=== PATIENT | female | born 1990 | race Caucasian/White ===

== ENCOUNTER → 2017-12-11 | Outpatient (CLI) | payer OTHER | END | disposition home or self-care (01) | LOC: C.PAPS 09:34 | PROVIDERS: ATTEND Physician Assistant | DX: Z12.4 Encounter for screening for malignant neoplasm of cervix (principal) ==

== ENCOUNTER 2021-01-29 22:07 | Inpatient (IN) ==
[2021-01-30] MEDS ORDERED: ACETAMINOPHEN 1000 MG/100 ML IV IV ONE (00:43)
[2021-01-30 00:49] LABS: Hematocrit (blood only) 43.8 % (37-47); Hemoglobin 14.6 g/dL (12.0-16.0); Immature Granulocytes # (auto) 0.02 K/uL (0.00-0.02); Immature Granulocytes % (auto) 0.4 %; Lymphocytes # (auto) 0.36 K/uL (1.2-3.4); Lymphocytes % (auto) 7.8 %; Mean Corpuscular Hgb Conc 33.3 g/dL (32-36); Mean Corpuscular Volume 99.1 fL (80-100); Mean Platelet Volume 10.2 fL (7.4-10.4); Monocytes # (auto) 0.13 K/uL (0.11-0.59); Monocytes % (auto) 2.8 %; Neutrophils # (auto) 4.13 K/uL (1.4-6.5); Platelet Count 212 K/uL (130-400); RDW Coefficient of Variation 17.1 % (11.5-14.5); RDW Standard Deviation 62.6 fL (36.4-46.3); Red Blood Count 4.42 M/uL (4.2-5.4); White Blood Count 4.64 K/uL (4.8-10.8)
[2021-01-30 00:59] LABS: INR 0.9 (0.9-1.1); Partial Thromboplastin Time 26.9 Seconds (21.0-31.0); Prothrombin Time 9.6 Seconds (9.0-12.0)
[2021-01-30 01:05] LABS: Albumin Level 2.9 gm/dl (3.4-5.0); BUN Creatinine Ratio 21.9 (10-20); Calcium 8.5 mg/dl (8.5-10.1); Creatinine Clr Calc Pharmacy 88.2 ml/min; Est GFR (African American) 83.3; Est GFR (Non-African American) 71.9; Magnesium 2.6 mg/dl (1.8-2.4); Potassium 4.2 mmol/L (3.5-5.1)
[2021-01-30] MEDS ORDERED: SODIUM CHLORIDE 0.9% 1000ML 1,000 ML IV ONE ×2 (01:06→02:50)
[2021-01-30] MEDS ORDERED: ACETAMINOPHEN 1,000 MG/100 ML VIAL IV STA (01:06)
[2021-01-30 01:07] LABS: Albumin Globulin Ratio 0.6 (0.9-2); Bilirubin,Total 0.5 mg/dl (0.2-1); Globulin 5.1 gm/dl (2.5-4.0)
[2021-01-30] MEDS ORDERED: dexAMETHasone**PF** 10 MG/ML VIAL IV ONE (01:07)
[2021-01-30] MEDS ORDERED: ALBUTEROL HFA 8 GM INHALER INH ONE (01:07)
[2021-01-30 01:28] LABS: Pregnancy Test, Serum Negative (Negative)
[2021-01-30] MEDS ORDERED: KETOROLAC TROMETHAMINE 15 MG/ML VIAL IV STA (02:50)
--- NOTE | 2021-01-30 02:59 | Emergency Department Note ---
History of Present Illness General Chief complaint: Illness Stated complaint: COVID +, COUGH Time Seen by Provider: 01/29/21 22:20 History of Present Illness Maximum Pain Intensity: 10 This 30-year-old with Down syndrome presents to the ER complaining of worsening Covid symptoms who tested positive on Friday and has been symptomatic since last Friday Location: Generalized Quality: Hard to breathe Severity: Moderate Duration: Past week Timing: Started last Friday Context: Breathing got worse and mother brought the patient in Modifying factors: better with rest; worse with activity Marquez in the household has had Covid. Patient started to desat today. Mother was concerned and brought her in. Family complains of cough, congestion, difficulty breathing body aches and headache. Family denies chest pain, abdominal pain, vomiting, diarrhea. Home Medications Medication Instructions Recorded Confirmed Type allopurinol 100 mg tablet 100 mg PO BID 01/03/21 01/30/21 History atorvastatin 10 mg tablet 10 mg PO DAILY 01/03/21 01/30/21 History esomeprazole magnesium 40 mg 40 mg PO DAILY 01/03/21 01/30/21 History granules delayed release for susp hydrocortisone 2.5 % topical cream 1 applic TOPICAL DAILY #30 g 01/03/21 01/30/21 Rx levothyroxine 175 mcg capsule 175 mcg PO DAILY 01/03/21 01/30/21 History dexamethasone 6 mg PO DAILY 01/30/21 01/30/21 History Allergies Allergy/AdvReac Type Severity Reaction Status Date / Time No Known Allergies Allergy Verified 01/30/21 00:39 Past Med/Surg History Medical History Down syndrome H/O hypercholesterolemia Surgical History S/P tonsillectomy and adenoidectomy Family History Other Diabetes Sarcoidosis Social History Smoking Status: Never smoker Feels Safe at Home: Yes Review of Systems A total of 10 systems reviewed and were otherwise negative Physical Exam Vital Signs Vital Signs - 24 hr 01/29/21 22:16 01/29/21 22:26 01/29/21 22:31 Temperature 36.8 C Temperature Source Temporal Artery Scan Pulse Rate 78 71 73 Pulse Rate from SpO2 Sensor 71 70 Respiratory Rate 24 22 22 Respiratory Effort / Characteristics Short of Breath Respiratory Depth Normal Respiratory Pattern Regular Blood Pressure 96/28 L 137/72 137/73 Blood Pressure Mean 50 93 94 Blood Pressure Position Sitting Pulse Oximetry 87 L 93 94 Oxygen Delivery Method Room Air Nasal Cannula Nasal Cannula Oxygen Flow Rate 4 4 Sepsis Recent Fever Within 48 Hours Yes Sepsis New/Unexplained Change in Mental Status No Sepsis Action Taken by Nursing Physician Notified 01/29/21 22:35 01/30/21 00:00 01/30/21 00:32 Temperature Temperature Source Pulse Rate 71 62 Pulse Rate from SpO2 Sensor 68 Respiratory Rate 29 H 20 Respiratory Effort / Characteristics Non-Labored Spontaneous Respiratory Depth Respiratory Pattern Blood Pressure 130/73 Blood Pressure Mean 92 Blood Pressure Position Pulse Oximetry 95 93 93 Oxygen Delivery Method Nasal Cannula Oxygen Flow Rate 4 Sepsis Recent Fever Within 48 Hours Sepsis New/Unexplained Change in Mental Status Sepsis Action Taken by Nursing 01/30/21 01:01 01/30/21 01:30 01/30/21 02:00 Temperature Temperature Source Pulse Rate 60 59 L 56 L Pulse Rate from SpO2 Sensor Respiratory Rate 26 H 24 26 H Respiratory Effort / Characteristics Respiratory Depth Respiratory Pattern Blood Pressure 123/81 112/80 108/80 Blood Pressure Mean 95 90 89 Blood Pressure Position Pulse Oximetry 92 92 92 Oxygen Delivery Method Oxygen Flow Rate Sepsis Recent Fever Within 48 Hours Sepsis New/Unexplained Change in Mental Status Sepsis Action Taken by Nursing VITALS: Vitals are noted on the nurse's note and reviewed by myself. Vital signs hypoxic on room air in the mid 80s but patient came up nicely on nasal cannula. GENERAL: Pleasant female who appears sick SKIN: The skin was without rashes, erythema, edema, or bruising. There is no tenting of the skin. Capillary reflex less than 2 seconds. HEAD: Normocephalic atraumatic. EARS: External auditory canals clear, tympanic membranes pearly calzada without erythema or effusion bilaterally. EYES: Pupils equal round and reactive to light and accommodation. Conjunctivae without injection, sclerae without icterus. Extraocular movements intact. NOSE: Patent, turbinates without inflammation or discharge. No sinus tenderness. MOUTH: Mucous membranes mildly dry. Pharynx without erythema or exudate. Uvula midline. Airway patent. Tongue does not deviate. NECK: Supple without nuchal rigidity. No lymphadenopathy. No thyromegaly. Cervical spine is nontender. No JVD. HEART: Regular rate and rhythm LUNGS: Mild diffuse inspiratory and end expiratory wheezes ABDOMEN: Positive bowel sounds x 4. Normal tympanic percussion. Soft, nontender, without masses or organomegaly. Caldera sign negative. No guarding or rebound tenderness. No CVA tenderness MUSCULOSKELETAL: No muscle atrophy, erythema, or edema noted. NEURO: Patient was alert and oriented to person place and time. Normal sensation to light and sharp touch. No focal neurological deficits. Course Administered Medications Discontinued Medications Acetaminophen (Acetaminophen 1000 Mg/100 Ml Iv) Confirm Administered Dose 1,000 mg IV .STK-MED ONE Stop: 01/30/21 00:44 Last Admin: 01/30/21 00:46 Dose: 1,000 mg Documented by: [id number] Albuterol (Albuterol Hfa 8 Gm Inhaler) 2 puffs INH NOW ONE Stop: 01/30/21 01:08 Last Admin: 01/30/21 02:07 Dose: 2 puffs Documented by: [id number] Dexamethasone Sodium Phosphate (DexamethasonePf 10 Mg/Ml Vial) 6 mg IV NOW ONE Stop: 01/30/21 01:08 Last Admin: 01/30/21 02:06 Dose: 6 mg Documented by: [id number] Sodium Chloride (Nss 1000ml) 1,000 mls @ 999 mls/hr IV .Q1H1M ONE Stop: 01/30/21 02:06 Last Infusion: 01/30/21 03:32 Dose: 0 mls/hr Documented by: [id number] Admin: 01/30/21 02:04 Dose: 999 mls/hr Documented by: [id number] Acetaminophen (Ofirmev) 1,000 mg in 100 mls @ 400 mls/hr IV NOW STA Stop: 01/30/21 01:20 Last Admin: 01/30/21 01:15 Dose: Not Given Documented by: [id number] Sodium Chloride (Nss 1000ml) 1,000 mls @ 999 mls/hr IV .Q1H1M ONE Stop: 01/30/21 03:50 Last Admin: 01/30/21 03:16 Dose: 999 mls/hr Documented by: [id number] Ketorolac Tromethamine (Ketorolac Tromethamine 15 Mg/Ml Vial) 10 mg IV NOW STA Stop: 01/30/21 02:51 Last Admin: 01/30/21 03:16 Dose: 10 mg Documented by: [id number] Medical Decision Making Medical Records Attestation: I reviewed the patient's medical records. Home Medications Current Medication List: was personally reviewed by me Laboratory Data Attestation: I reviewed the patient's lab results. Result diagrams: 01/30/21 00:30 01/30/21 00:30 Lab Results 01/30/21 01/30/21 01/30/21 Range/Units 00:30 00:30 00:30 WBC 4.64 L (4.8-10.8) K/uL RBC 4.42 (4.2-5.4) M/uL Hgb 14.6 (12.0-16.0) g/dL Hct 43.8 (37-47) % MCV 99.1 (80-100) fL MCH 33.0 (25-34) pg MCHC 33.3 (32-36) g/dL RDW Std Deviation 62.6 H (36.4-46.3) fL RDW Coeff of Sobeida 17.1 H (11.5-14.5) % Plt Count 212 (130-400) K/uL MPV 10.2 (7.4-10.4) fL Immature Gran % (Auto) 0.4 % Neut % (Auto) 89.0 % Lymph % (Auto) 7.8 % [place] % (Auto) 2.8 % Eos % (Auto) 0.0 % Baso % (Auto) 0.0 % Neut # (Auto) 4.13 (1.4-6.5) K/uL Lymph # (Auto) 0.36 L (1.2-3.4) K/uL [place] # (Auto) 0.13 (0.11-0.59) K/uL Eos # (Auto) 0.00 (0-0.5) K/uL Baso # (Auto) 0.00 (0-0.2) K/uL Immature Gran # (Auto) 0.02 (0.00-0.02) K/uL PT 9.6 (9.0-12.0) Seconds INR 0.9 (0.9-1.1) APTT 26.9 (21.0-31.0) Seconds PTT Ratio 1.0 Sodium 140 (136-145) mmol/L Potassium 4.2 (3.5-5.1) mmol/L Chloride 106 (98-107) mmol/L Carbon Dioxide 28 (21-32) mmol/L Anion Gap 6.0 (3-11) BUN 23 H (7-18) mg/dl Creatinine 1.03 (0.6-1.2) mg/dl Est Cr Clr Drug Dosing 88.2 ml/min Est GFR ( Amer) 83.3 Est GFR (Non-Af Amer) 71.9 BUN/Creatinine Ratio 21.9 H (10-20) Glucose 144 H (70-99) mg/dl Lactate (0.4-2.0) mmol/L Calcium 8.5 (8.5-10.1) mg/dl Magnesium 2.6 H (1.8-2.4) mg/dl Total Bilirubin 0.5 (0.2-1) mg/dl AST 60 H (15-37) U/L ALT 87 H (12-78) U/L Alkaline Phosphatase 181 H (45-117) U/L Total Protein 8.0 (6.4-8.2) gm/dl Albumin 2.9 L (3.4-5.0) gm/dl Globulin 5.1 H (2.5-4.0) gm/dl Albumin/Globulin Ratio 0.6 L (0.9-2) HCG, Qual (Negative) COVID-19 Eval Order SARS-CoV-2 (PCR) (Negative) Influenza Type A (PCR) (Neg) Influenza Type B (PCR) (Neg) RSV (RT-PCR) (Neg) 01/30/21 01/30/21 01/30/21 Range/Units 00:30 00:30 02:03 WBC (4.8-10.8) K/uL RBC (4.2-5.4) M/uL Hgb (12.0-16.0) g/dL Hct (37-47) % MCV (80-100) fL MCH (25-34) pg MCHC (32-36) g/dL RDW Std Deviation (36.4-46.3) fL RDW Coeff of Sobeida (11.5-14.5) % Plt Count (130-400) K/uL MPV (7.4-10.4) fL Immature Gran % (Auto) % Neut % (Auto) % Lymph % (Auto) % [place] % (Auto) % Eos % (Auto) % Baso % (Auto) % Neut # (Auto) (1.4-6.5) K/uL Lymph # (Auto) (1.2-3.4) K/uL [place] # (Auto) (0.11-0.59) K/uL Eos # (Auto) (0-0.5) K/uL Baso # (Auto) (0-0.2) K/uL Immature Gran # (Auto) (0.00-0.02) K/uL PT (9.0-12.0) Seconds INR (0.9-1.1) APTT (21.0-31.0) Seconds PTT Ratio Sodium (136-145) mmol/L Potassium (3.5-5.1) mmol/L Chloride (98-107) mmol/L Carbon Dioxide (21-32) mmol/L Anion Gap (3-11) BUN (7-18) mg/dl Creatinine (0.6-1.2) mg/dl Est Cr Clr Drug Dosing ml/min Est GFR ( Amer) Est GFR (Non-Af Amer) BUN/Creatinine Ratio (10-20) Glucose (70-99) mg/dl Lactate 2.0 (0.4-2.0) mmol/L Calcium (8.5-10.1) mg/dl Magnesium (1.8-2.4) mg/dl Total Bilirubin (0.2-1) mg/dl AST (15-37) U/L ALT (12-78) U/L Alkaline Phosphatase (45-117) U/L Total Protein (6.4-8.2) gm/dl Albumin (3.4-5.0) gm/dl Globulin (2.5-4.0) gm/dl Albumin/Globulin Ratio (0.9-2) HCG, Qual Negative (Negative) COVID-19 Eval Order [facility]FluRsv at [facility] SARS-CoV-2 (PCR) (Negative) Influenza Type A (PCR) (Neg) Influenza Type B (PCR) (Neg) RSV (RT-PCR) (Neg) 01/30/21 Range/Units 02:03 WBC (4.8-10.8) K/uL RBC (4.2-5.4) M/uL Hgb (12.0-16.0) g/dL Hct (37-47) % MCV (80-100) fL MCH (25-34) pg MCHC (32-36) g/dL RDW Std Deviation (36.4-46.3) fL RDW Coeff of Sobeida (11.5-14.5) % Plt Count (130-400) K/uL MPV (7.4-10.4) fL Immature Gran % (Auto) % Neut % (Auto) % Lymph % (Auto) % [place] % (Auto) % Eos % (Auto) % Baso % (Auto) % Neut # (Auto) (1.4-6.5) K/uL Lymph # (Auto) (1.2-3.4) K/uL [place] # (Auto) (0.11-0.59) K/uL Eos # (Auto) (0-0.5) K/uL Baso # (Auto) (0-0.2) K/uL Immature Gran # (Auto) (0.00-0.02) K/uL PT (9.0-12.0) Seconds INR (0.9-1.1) APTT (21.0-31.0) Seconds PTT Ratio Sodium (136-145) mmol/L Potassium (3.5-5.1) mmol/L Chloride (98-107) mmol/L Carbon Dioxide (21-32) mmol/L Anion Gap (3-11) BUN (7-18) mg/dl Creatinine (0.6-1.2) mg/dl Est Cr Clr Drug Dosing ml/min Est GFR ( Amer) Est GFR (Non-Af Amer) BUN/Creatinine Ratio (10-20) Glucose (70-99) mg/dl Lactate (0.4-2.0) mmol/L Calcium (8.5-10.1) mg/dl Magnesium (1.8-2.4) mg/dl Total Bilirubin (0.2-1) mg/dl AST (15-37) U/L ALT (12-78) U/L Alkaline Phosphatase (45-117) U/L Total Protein (6.4-8.2) gm/dl Albumin (3.4-5.0) gm/dl Globulin (2.5-4.0) gm/dl Albumin/Globulin Ratio (0.9-2) HCG, Qual (Negative) COVID-19 Eval Order SARS-CoV-2 (PCR) POSITIVE A* (Negative) Influenza Type A (PCR) Negative (Neg) Influenza Type B (PCR) Negative (Neg) RSV (RT-PCR) Negative (Neg) Imaging Data Attestation: I personally reviewed and interpreted this imaging study as follows: MDM Narrative Prior records/ancillary studies reviewed. Triage Nursing notes reviewed. Additional history obtained from family. The patient's history was concerning for fever. Differential diagnosis: Etiologies such as viral syndrome, otitis, pharyngitis, pneumonia, influenza, meningitis, urinary tract infection, sepsis, bacteremia, as well as others were entertained. Physical examination: As above ER treatment provided: An order was placed for continuous cardiac monitoring. The monitor shows a rate of 50-100 with a sinus rhythm. IV fluids, Tylenol, Toradol, albuterol, Decadron Patient's family doctor has had her on Zithromax and Decadron 6 mg daily On reassessment the patient felt better. Diagnostics interpreted by me: ECG: Ordered for dyspnea EKG: Normal sinus, poor baseline, no acute ST-T wave changes. Impression normal sinus interpreted by myself I think arrhythmia is unlikely. EKG shows normal sinus rhythm with no interval abnormalities such as QT prolongation or WPW. There are no findings to suggest Brugada syndrome. Cardiac monitoring in the emergency department reveals no tachycardic or bradycardic dysrhythmia. Hypertrophic cardiomyopathy was considered but there are no clear historical elements pointing toward this. EKG is not suggestive. The QRS voltage is not extremely large and there are no suggestive Q waves. The labs revealed stable H&H Mild LFTs, normal coags, negative hCG Blood cultures pending, negative lactic acid Imaging studies: Chest x-ray with multifocal pneumonia who is known to have Covid per my interp retation Consultation: A consultation was placed with Dr. Christine. The case was discussed and diagnostics were reviewed. The patient was evaluated in the ER for further treatment. This appears to be consistent with worsening Covid pneumonia who was hypoxic. Medicine was consulted. She will be evaluated for admission. Patient has already been on antibiotics and steroids by the family doctor. She was medicated as above. Patient and family agreeable treatment plan of admission. By the evaluation outlined above emergent etiologies such as otitis, pharyngitis, meningitis, urinary tract infection, sepsis, bacteremia, as well as others were deemed relatively unlikely. The pt/MOP informed about the findings as listed above. All questions were answered and pleased with the treatment. The chart was completed utilizing [employer] Speech voice recognition software. Grammatical errors, random word insertions, pronoun errors, and incomplete sentences are an occassional consequence of this system due to software limitations, ambient noise, and hardware issues. Any formal questions or concerns about the content, text, or information contained within the body of this dictation should be directly addressed to the physician logistics assistant for clarification. Impression & Plan Pneumonia due to 2019-nCoV, Hypoxic Discharge Plan Visit Data Chief Complaint: Illness Stated Complaint: COVID +, COUGH ED Provider: Zach Shepherd ED Midlevel Provider: Tiffani Bill Discharge Problem: Pneumonia due to 2019-nCoV, Hypoxic Patient Disposition: Admitted As Inpatient Condition: Fair Forms Stand Alone Forms: [facility] [place] [employer] Prescriptions Prescriptions: No Action levothyroxine 175 mcg capsule 175 mcg PO DAILY RF: 0 allopurinol 100 mg tablet 100 mg PO BID RF: 0 atorvastatin 10 mg tablet 10 mg PO DAILY RF: 0 esomeprazole magnesium [Nexium Packet] [address] for susp in packet 40 mg PO DAILY RF: 0 hydrocortisone 2.5 % cream 1 applic topical DAILY Qty: 30 RF: 0 dexamethasone 4 mg tablet 6 mg PO DAILY RF: 0 Referrals Referrals: Rashad Cole [Primary Care Provider] -
[2021-01-30 03:07] LABS: Influenza A virus by PCR Negative (Neg); Influenza B virus by PCR Negative (Neg); RSV by PCR Negative (Neg)
[2021-01-30 03:16] LABS: SARS CoV2 RNA(COVID-19) InHosp POSITIVE (Negative)
--- NOTE | 2021-01-30 05:37 | History & Physical Report ---
Date of Service January 30, 2021 Assessment & Plan (1) Pneumonia due to 2019-nCoV: Multifocal pneumonia due to COVID-19 virus with hypoxia- Dexamethasone 6 mg IV every morning Remdesivir IV per protocol Zosyn 4.5 g IV every 8 hours Azithromycin 500 mg IV daily Ventolin HFA 2 puffs 4 times daily, and every 2 hours as needed Zinc sulfate 220 mg p.o. every morning Vitamin D 5000 international units p.o. every morning Nasal cannula oxygen, titrate to keep pulse ox 95% Present on Admission?: Yes (2) Hypoxic: See above Present on Admission?: Yes (3) Gout: Continue allopurinol Present on Admission?: Yes (4) H/O hypercholesterolemia: Continue atorvastatin Present on Admission?: Yes (5) Hypothyroidism: Continue levothyroxine Present on Admission?: Yes (6) GERD (gastroesophageal reflux disease): Continue Nexium/pantoprazole Present on Admission?: Yes (7) Down syndrome: Mother will stay with the daughter this evening Present on Admission?: Yes Admission and Anticipated Discharge Date Admission Date: January 30, 2021 History of Present Illness Chief Complaint: The patient presents to the emergency department with complaint of worsening shortness of breath, dyspnea on exertion and fatigue, that initially began about 5 to 6 days ago, but worsened considerably over the past 1 to 2 days. Primary Care Provider: Rashad Cole The patient is a 30-year-old female with a past medical history including Down's syndrome, hypercholesterolemia, gout, hypothyroidism, GERD and morbid obesity. She had a positive COVID-19 test at [facility] 2 days ago, and retested positive in ED this evening. Chest x-ray was consistent with significant multifocal pneumonia, with pulse ox on room air recorded at 87% in the ED. Her mother who was in the room, was hospitalized recently for COVID-19 infection, having completed her treatment today. Allergies Allergy/AdvReac Type Severity Reaction Status Date / Time No Known Allergies Allergy Verified 01/30/21 00:39 Home Medications Medication Instructions Recorded Confirmed Type allopurinol 100 mg tablet 100 mg PO BID 01/03/21 01/30/21 History atorvastatin 10 mg tablet 10 mg PO DAILY 01/03/21 01/30/21 History esomeprazole magnesium 40 mg 40 mg PO DAILY 01/03/21 01/30/21 History granules delayed release for susp hydrocortisone 2.5 % topical cream 1 applic TOPICAL DAILY #30 g 01/03/21 01/30/21 Rx levothyroxine 175 mcg capsule 175 mcg PO DAILY 01/03/21 01/30/21 History dexamethasone 6 mg PO DAILY 01/30/21 01/30/21 History Past Med/Surg History Medical History Down syndrome H/O hypercholesterolemia Surgical History S/P tonsillectomy and adenoidectomy Family History Other Diabetes Sarcoidosis Social History Smoking Status: Never smoker Feels Safe at Home: Yes Review of Systems Review of Systems: The patient denies chest pain, palpitations, lower extremity swelling, sore throat, chills, sweats, weight change, fatigue, nausea, vomiting, diarrhea , constipation, abdominal pain, pelvic pain, blood in urine or stool, dysuria, urinary frequency or urgency, memory loss, loss of consciousness, rash, abnormal bruising or bleeding, imbalance, focal weakness, numbness or tingling in arms or legs, back or neck pain, or night sweats. The review of systems is otherwise negative other than for that already noted above, and at least 10 systems have been reviewed. Physical Exam Physical Exam: The patient is awake, alert and oriented 3, normocephalic and atraumatic, lying in bed and in no acute distress. HEENT--PERRL, EOMI, mucous membranes and oropharynx dry. Neck--supple. No JVD. No bruits. Thyroid normal, trachea midline, no adenopathy. Heart--normal S1 and S2. No murmurs, rubs or gallops. Lungs--coarse breath sounds with wheezes bilaterally. No respiratory distress, no accessory muscle use. Abdomen--normal bowel sounds and soft. Nontender. Nondistended. Morbid obesity Extremities--no cyanosis or clubbing. No edema. Dermatologic--normal skin turgor, normal color, no abnormal lymph nodes, no rash. Neurologic--cranial nerves II through XII grossly intact. Rheumatologic--normal range of motion. Psychiatric--normal affect. Results & Data Results & Data ([facility]) Vital Signs (Past 12 Hours) Vital Signs Temp Pulse Resp BP Pulse Ox 01/30/21 04:30 71 24 115/83 91 01/30/21 04:00 70 24 123/86 93 01/30/21 03:30 73 26 H 123/80 92 01/30/21 03:00 68 26 H 117/79 95 01/30/21 02:30 80 24 131/84 95 01/30/21 02:00 56 L 26 H 108/80 92 01/30/21 01:30 59 L 24 112/80 92 01/30/21 01:01 60 26 H 123/81 92 01/30/21 00:32 62 20 130/73 93 01/30/21 00:00 71 29 H 93 01/29/21 22:35 95 01/29/21 22:31 73 22 137/73 94 01/29/21 22:26 71 22 137/72 93 01/29/21 22:16 98.2 F 78 24 96/28 L 87 L Laboratory Results Laboratory Results WBC 4.64 K/uL (4.8-10.8) L 01/30/21 00:30 RBC 4.42 M/uL (4.2-5.4) 01/30/21 00:30 Hgb 14.6 g/dL (12.0-16.0) 01/30/21 00:30 Hct 43.8 % (37-47) 01/30/21 00:30 MCV 99.1 fL (80-100) 01/30/21 00:30 MCH 33.0 pg (25-34) 01/30/21 00:30 MCHC 33.3 g/dL (32-36) 01/30/21 00:30 RDW Std Deviation 62.6 fL (36.4-46.3) H 01/30/21 00:30 RDW Coeff of Sobeida 17.1 % (11.5-14.5) H 01/30/21 00:30 Plt Count 212 K/uL (130-400) 01/30/21 00:30 MPV 10.2 fL (7.4-10.4) 01/30/21 00:30 Immature Gran % (Auto) 0.4 % 01/30/21 00:30 Neut % (Auto) 89.0 % 01/30/21 00:30 Lymph % (Auto) 7.8 % 01/30/21 00:30 [place] % (Auto) 2.8 % 01/30/21 00:30 Eos % (Auto) 0.0 % 01/30/21 00:30 Baso % (Auto) 0.0 % 01/30/21 00:30 Neut # (Auto) 4.13 K/uL (1.4-6.5) 01/30/21 00:30 Lymph # (Auto) 0.36 K/uL (1.2-3.4) L 01/30/21 00:30 [place] # (Auto) 0.13 K/uL (0.11-0.59) 01/30/21 00:30 Eos # (Auto) 0.00 K/uL (0-0.5) 01/30/21 00:30 Baso # (Auto) 0.00 K/uL (0-0.2) 01/30/21 00:30 Immature Gran # (Auto) 0.02 K/uL (0.00-0.02) 01/30/21 00:30 PT 9.6 Seconds (9.0-12.0) 01/30/21 00:30 INR 0.9 (0.9-1.1) 01/30/21 00:30 APTT 26.9 Seconds (21.0-31.0) 01/30/21 00:30 PTT Ratio 1.0 01/30/21 00:30 Sodium 140 mmol/L (136-145) 01/30/21 00:30 Potassium 4.2 mmol/L (3.5-5.1) 01/30/21 00:30 Chloride 106 mmol/L (98-107) 01/30/21 00:30 Carbon Dioxide 28 mmol/L (21-32) 01/30/21 00:30 Anion Gap 6.0 (3-11) 01/30/21 00:30 BUN 23 mg/dl (7-18) H 01/30/21 00:30 Creatinine 1.03 mg/dl (0.6-1.2) 01/30/21 00:30 Est Cr Clr Drug Dosing 88.2 ml/min 01/30/21 00:30 Est GFR ( Amer) 83.3 01/30/21 00:30 Est GFR (Non-Af Amer) 71.9 01/30/21 00:30 BUN/Creatinine Ratio 21.9 (10-20) H 01/30/21 00:30 Glucose 144 mg/dl (70-99) H 01/30/21 00:30 Lactate 2.0 mmol/L (0.4-2.0) 01/30/21 00:30 Calcium 8.5 mg/dl (8.5-10.1) 01/30/21 00:30 Magnesium 2.6 mg/dl (1.8-2.4) H 01/30/21 00:30 Total Bilirubin 0.5 mg/dl (0.2-1) 01/30/21 00:30 AST 60 U/L (15-37) H 01/30/21 00:30 ALT 87 U/L (12-78) H 01/30/21 00:30 Alkaline Phosphatase 181 U/L (45-117) H 01/30/21 00:30 Total Protein 8.0 gm/dl (6.4-8.2) 01/30/21 00:30 Albumin 2.9 gm/dl (3.4-5.0) L 01/30/21 00:30 Globulin 5.1 gm/dl (2.5-4.0) H 01/30/21 00:30 Albumin/Globulin Ratio 0.6 (0.9-2) L 01/30/21 00:30 HCG, Qual Negative (Negative) 01/30/21 00:30 COVID-19 Eval Order [facility]FluRsv at [facility] 01/30/21 02:03 SARS-CoV-2 (PCR) POSITIVE (Negative) A* 01/30/21 02:03 Influenza Type A (PCR) Negative (Neg) 01/30/21 02:03 Influenza Type B (PCR) Negative (Neg) 01/30/21 02:03 RSV (RT-PCR) Negative (Neg) 01/30/21 02:03 Code Status & VTE Plan Code Status Full code VTE Prophylaxis Plan VTE Prophylaxis will be ordered: Yes PG Care Time/CCT Total # of Minutes Spent Total Time Spent with Patient: Total time spent is greater than 50% in coordination of care (as documented) at patient's floor/unit and/or counseling patient: Coding Level of Care Code 19707 Initial Inpt Care Lvl 3 Diagnoses Pneumonia due to 2019-nCoV U07.1; J12.82 Hypoxic R09.02 Gout M10.9 H/O hypercholesterolemia Z86.39 Hypothyroidism E03.9 GERD (gastroesophageal reflux disease) K21.9 Down syndrome Q90.9
[2021-01-30 07:03] LABS: Appearance Urine Clear (Clear); Bacteria Urine Automated Negative (Negative); Bilirubin Urine Negative (Negative); Blood Urine 3+ (Negative); Cast Urine Automated 0 /lpf (0-5); Color Urine Yellow; Epithelial Cell Urine Auto 20-30 /lpf (0-5); Glucose Urine UA Negative (Negative); Ketones Urine Negative (Negative); Leukocyte Esterase Urine Negative (Negative); Nitrite Urine Negative (Negative); Protein Urine Trace (Negative); RBC Urine Automated >30 /hpf (0-4); Specific Gravity Urine 1.019 (1.000-1.030); Urobilinogen Urine Negative (Negative)
--- NOTE | 2021-01-30 07:08 | XRay Report ---
XR chest 1V portable HISTORY: 30 years-old Female SEPSIS acute sepsis COMPARISON: None TECHNIQUE: Portable AP view the chest FINDINGS: Cardiac silhouette is enlarged. No pneumothorax. Blunting of the costophrenic angles suggests trace e ffusions. Moderate to extensive right greater than left bilateral patchy alveolar opacities with asso ciated interstitial coarsening. Bones appear intact. IMPRESSION: Bilateral pulmonary opacities compatible with multifocal pneumonia. ACT 112: Negative or not required by law. The above report was generated using voice recognition software. It may contain grammatical, syntax o r spelling errors. Electronically signed by: Jamie Jolley M.D. 01/30/2021 7:07 AM
[2021-01-30] MEDS ORDERED: ONDANSETRON INJ 2 MG/ML 2 ML VIAL IV PRN (09:12)
[2021-01-30] MEDS ORDERED: PIPERACILL/TAZOBAC CONSULT ACTIVE PRN (09:12)
[2021-01-30] MEDS ORDERED: ENOXAPARIN 0.5 MG/KG SQ SCH (09:12)
[2021-01-30] MEDS ORDERED: ALBUTEROL HFA 8 GM INHALER INH SCH (09:12)
[2021-01-30] MEDS ORDERED: REMDESIVIR 200 MG in SODIUM CHLORIDE 0.9% 210 ML IV ONE (09:45)
[2021-01-30] MEDS ORDERED: PIPERACILLIN/TAZOBACTAM 4.5 GM in DEXTROSE 5% 100 ML IV ONE (09:45)
[2021-01-30] MEDS ORDERED: ALBUTEROL HFA 8 GM INHALER INH PRN (09:57)
[2021-01-30] MEDS: ENOXAPARIN INJ 60 MG/0.6 ML SYR SQ SCH ×2 (10:27→21:36)
[2021-01-30] MEDS: ATORVASTATIN 10 MG TAB PO SCH (10:28)
[2021-01-30] MEDS: PANTOprazole 40 MG TAB PO SCH (10:28)
[2021-01-30] MEDS: allopurinoL 100 MG TAB PO SCH ×2 (10:28→21:35)
[2021-01-30] MEDS: CHOLECALCIFEROL 1,000 UNITS 25 MCG TAB PO SCH (10:29)
[2021-01-30] MEDS: ZINC SULFATE 220 MG CAPSULE PO SCH (10:29)
[2021-01-30] MEDS: LEVOTHYROXINE SODIUM 175 MCG TABLET PO SCH (10:29)
[2021-01-30] MEDS: dexAMETHasone 6 MG in SYRINGE 0 ML IV SCH (10:30)
[2021-01-30 10:56] LABS: Hematocrit (blood only) 40.8 % (37-47); Hemoglobin 13.7 g/dL (12.0-16.0); Mean Corpuscular Hemoglobin 33.1 pg (25-34); Mean Corpuscular Hgb Conc 33.6 g/dL (32-36); Mean Corpuscular Volume 98.6 fL (80-100); Mean Platelet Volume 10.1 fL (7.4-10.4); Platelet Count 198 K/uL (130-400); RDW Standard Deviation 60.9 fL (36.4-46.3); Red Blood Count 4.14 M/uL (4.2-5.4); White Blood Count 4.09 K/uL (4.8-10.8)
[2021-01-30 11:19] LABS: Albumin Level 2.5 gm/dl (3.4-5.0); BUN Creatinine Ratio 25.1 (10-20); Calcium 7.5 mg/dl (8.5-10.1); Creatinine Clr Calc Pharmacy 107.3 ml/min; Est GFR (African American) 105.1; Est GFR (Non-African American) 90.7; Potassium 4.5 mmol/L (3.5-5.1)
[2021-01-30 11:22] LABS: Albumin Globulin Ratio 0.5 (0.9-2); Bilirubin,Total 0.4 mg/dl (0.2-1); C Reactive Protein 5.38 mg/dl (0-0.29); Globulin 4.9 gm/dl (2.5-4.0); Total Protein 7.4 gm/dl (6.4-8.2)
[2021-01-30 11:26] LABS: D Dimer 1240 ug/L FEU (0-500)
[2021-01-30] MEDS: AZITHROMYCIN 500 MG in DEXTROSE 5% 250 ML IV SCH (11:39)
[2021-01-30] MEDS: SODIUM CHLORIDE 0.9% 10ML FLUSH IV SCH (13:06)
[2021-01-30] MEDS: PIPERACILLIN/TAZOBACTAM 4.5 GM in DEXTROSE 5% 100 ML IV SCH ×2 (16:09→23:19)
[2021-01-30] MEDS: ACETAMINOPHEN 325 MG TAB PO PRN (18:15)
[2021-01-31] MEDS: LEVOTHYROXINE SODIUM 175 MCG TABLET PO SCH (06:09)
--- NOTE | 2021-01-31 06:15 | Electrocardiogram Report ---
Test Reason : Blood Pressure : / mmHG Vent. Rate : 069 BPM Atrial Rate : 069 BPM P-R Int : 166 ms QRS Dur : 086 ms QT Int : 412 ms P-R-T Axes : 021 025 -05 degrees QTc Int : 441 ms Sinus rhythm with marked sinus arrhythmia Possible Inferior infarct , age undetermined Cannot rule out Anterior infarct , age undetermined Abnormal ECG No previous ECGs available Confirmed by Jose Deutsch [id number] on 01/31/2021 6:14:41 AM Referred By: REFERRED SELF Confirmed By:Jose Deutsch
[2021-01-31 07:33] LABS: Mean Corpuscular Hemoglobin 33.3 pg (25-34); Mean Corpuscular Hgb Conc 33.3 g/dL (32-36); Mean Corpuscular Volume 99.8 fL (80-100); Mean Platelet Volume 10.8 fL (7.4-10.4); Platelet Count 234 K/uL (130-400); RDW Coefficient of Variation 17.1 % (11.5-14.5); Red Blood Count 4.21 M/uL (4.2-5.4); White Blood Count 3.98 K/uL (4.8-10.8)
[2021-01-31 07:44] LABS: Albumin Level 2.6 gm/dl (3.4-5.0); BUN Creatinine Ratio 22.7 (10-20); C Reactive Protein 2.81 mg/dl (0-0.29); Calcium 8.2 mg/dl (8.5-10.1); Creatinine Clr Calc Pharmacy 103.7 ml/min; Est GFR (African American) 100.8; Est GFR (Non-African American) 86.9; Potassium 4.5 mmol/L (3.5-5.1)
[2021-01-31 07:47] LABS: Albumin Globulin Ratio 0.6 (0.9-2); Bilirubin,Total 0.4 mg/dl (0.2-1); Globulin 4.5 gm/dl (2.5-4.0); Total Protein 7.1 gm/dl (6.4-8.2)
[2021-01-31] MEDS: PIPERACILLIN/TAZOBACTAM 4.5 GM in DEXTROSE 5% 100 ML IV SCH ×3 (08:38→23:25)
[2021-01-31] MEDS: ENOXAPARIN INJ 60 MG/0.6 ML SYR SQ SCH ×2 (08:41→21:05)
[2021-01-31] MEDS: PANTOprazole 40 MG TAB PO SCH (08:41)
[2021-01-31] MEDS: CHOLECALCIFEROL 1,000 UNITS 25 MCG TAB PO SCH (08:41)
[2021-01-31] MEDS: ATORVASTATIN 10 MG TAB PO SCH (08:41)
[2021-01-31] MEDS: ZINC SULFATE 220 MG CAPSULE PO SCH (08:41)
[2021-01-31] MEDS: allopurinoL 100 MG TAB PO SCH ×2 (08:42→21:05)
[2021-01-31] MEDS: ACETAMINOPHEN 325 MG TAB PO PRN (11:02)
[2021-01-31] MEDS: AZITHROMYCIN 500 MG in DEXTROSE 5% 250 ML IV SCH (11:04)
[2021-01-31] MEDS: dexAMETHasone 6 MG in SYRINGE 0 ML IV SCH (11:04)
--- NOTE | 2021-01-31 12:27 | Hospitalist Progress Note ---
Date of Service January 31, 2021 Assessment & Plan (1) Pneumonia due to 2019-nCoV: Multifocal pneumonia due to COVID-19 virus with hypoxia- Dexamethasone 6 mg IV daily x 10 days Remdesivir IV per protocol, complete 5 days, day 2 today Zosyn 4.5 g IV every 8 hours, only complete 5 days Azithromycin 500 mg IV daily, 5 days much improved the past 24 hours, was on CPAP 6mmHg and 50% FiO2 all day yesterday down to 2L today discussed possible use of Tocilizumab with Dr. Morrow ysterday, but her CRP was only 5.7 today the CRP is down to 2 so inflammation trending down updated her mother at the bedside (2) Hypoxic: acute hypoxic respiratory failure much improved, down to 2L NC, able to take a deep breath try to titrate down to room air as tolerated (3) Gout: Continue allopurinol (4) H/O hypercholesterolemia: Continue atorvastatin (5) Hypothyroidism: Continue levothyroxine (6) GERD (gastroesophageal reflux disease): Continue Nexium/pantoprazole (7) Down syndrome: Mother will stay with patient while admitted Admission and Anticipated Discharge Date Admission Date: January 30, 2021 Subjective patient feeling better compared to yesterday, she is off CPAP, down to 2L NC she says she can take a deeper breath today, no distress, minimal cough she is eating and drinking better than she was prior to admission reviewed labs, CRP trending down to 2 from 5, WBC is 3.9, hb 14, plts 234k Cr 0.88, K 4.5 Review of Systems Review of Systems: All systems reviewed & are unremarkable except as noted in Subjective Constitutional: + weakness; no fever, no chills, no sweats and no fatigue Respiratory: + cough and + dyspnea; no sputum production Cardiovascular: no chest pain and no edema Gastrointestinal: no abdominal pain, no nausea, no vomiting, no constipation and no diarrhea/loose stools Physical Exam Constitutional: well developed, well nourished, + ill appearing and + obese; no acute distress Neck: trachea midline, no thyromegaly + thick neck Respiratory: + cough and + tachypneic; no respiratory distress, no labored breathing and does not use accessory muscles Auscultation: lungs clear to auscultation bilaterally Cardiovascular: RRR, no murmur, no edema Gastrointestinal (Abdomen): normal bowel sounds, soft, nontender, no hepatosplenomegaly Musculoskeletal: no cyanosis or clubbing, extremities motor strength 5/5 Skin: no rashes, warm and dry Neurologic: patellar DTR's 2+ bilat, sensation intact and PERRL, EOMI, accommodation nl, no face palsy, no dysarthria Psychiatric: A+Ox3, euthymic affect Lymphatic: no cervical or axillary lymphadenopathy Results & Data Results & Data ([facility]) Vital Signs (Past 12 Hours) Vital Signs Temp Pulse Pulse Resp BP Pulse Ox 01/31/21 11:42 36.6 C 71 19 102/69 95 01/31/21 08:00 56 L 01/31/21 07:55 36.7 C 54 L 19 109/72 91 Laboratory Results Laboratory Results - last 24 hr 01/30/21 01/31/21 01/31/21 Unknown 05:55 05:55 WBC 3.98 L RBC 4.21 Hgb 14.0 Hct 42.0 MCV 99.8 MCH 33.3 MCHC 33.3 RDW Std Deviation 63.0 H RDW Coeff of Sobeida 17.1 H Plt Count 234 MPV 10.8 H Sodium 140 Potassium 4.5 Chloride 109 H Carbon Dioxide 26 Anion Gap 5.0 BUN 20 H Creatinine 0.88 Est Cr Clr Drug Dosing 103.7 Est GFR ( Amer) 100.8 Est GFR (Non-Af Amer) 86.9 BUN/Creatinine Ratio 22.7 H Glucose 166 H Calcium 8.2 L Total Bilirubin 0.4 AST 58 H ALT 102 H Alkaline Phosphatase 168 H C-Reactive Protein 2.81 H Total Protein 7.1 Albumin 2.6 L Globulin 4.5 H Albumin/Globulin Ratio 0.6 L Stl C. diff Tox B Gene Negative Cdiff Gene Medications Administered Current Inpatient Medications Acetaminophen (Acetaminophen 325 Mg Tab) 650 mg PO Q4H PRN PRN Reason: Pain or Fever Stop: 03/01/21 09:11 Last Admin: 01/31/21 11:02 Dose: 650 mg Documented by: Albuterol (Albuterol Hfa 8 Gm Inhaler) 2 puffs INH Q4 PRN PRN Reason: Wheezing Stop: 02/06/21 09:56 Allopurinol (Allopurinol 100 Mg Tab) 100 mg PO BID ANA Stop: 03/01/21 08:59 Last Admin: 01/31/21 08:42 Dose: 100 mg Documented by: Atorvastatin Calcium (Atorvastatin 10 Mg Tab) 10 mg PO DAILY ANA Stop: 03/01/21 08:59 Last Admin: 01/31/21 08:41 Dose: 10 mg Documented by: Enoxaparin Sodium (Enoxaparin Inj 60 Mg/0.6 Ml Syr) 60 mg SQ BID [facility] Stop: 03/01/21 09:59 Last Admin: 01/31/21 08:41 Dose: 60 mg Documented by: Dexamethasone 6 mg/ Syringe 1.5 mls @ 1 mls/min IV Q24H ANA Stop: 03/01/21 09:59 Last Admin: 01/31/21 11:04 Dose: 1 mls/min Documented by: Piperacillin Sod/Tazobactam (Sod 4.5 gm/ Dextrose) 120 mls @ 30 mls/hr IV Q8H [facility]; Protocol Stop: 02/06/21 14:59 Last Admin: 01/31/21 08:38 Dose: 30 mls/hr Documented by: Azithromycin 500 mg/ Dextrose 255 mls @ 125 mls/hr IV Q24H [facility] Stop: 02/06/21 09:59 Last Admin: 01/31/21 11:04 Dose: 128 mls/hr Documented by: Remdesivir 100 mg/ Sodium (Chloride) 250 mls @ 250 mls/hr IV Q24H [facility]; Protocol Stop: 02/03/21 12:59 Levothyroxine Sodium ([facility]othyroxine Sodium 175 Mcg Tablet) [facility]: 03/01/21 06:29 Last Admin: 01/31/21 06:09 Dose: 175 mcg Documented by: Miscellaneous Information (Piperacill/Tazobac Consult Active) 1 ea N/A UD PRN PRN Reason: Consult Stop: 03/01/21 09:11 Ondansetron HCl (Ondansetron Inj 2 Mg/Ml 2 Ml Vial) 4 mg IV Q6H PRN PRN Reason: Nausea Stop: 03/01/21 09:11 Pantoprazole Sodium (Pantoprazole 40 Mg Tab) 40 mg PO DAILY [facility] Stop: 03/01/21 08:59 Last Admin: 01/31/21 08:41 Dose: 40 mg Documented by: Sodium Chloride (Sodium Chloride 0.9% 10ml Flush) 30 ml IV Q24H [facility] Stop: 02/03/21 13:01 Last Admin: 01/30/21 13:06 Dose: 30 ml Documented by: Vitamin D (Cholecalciferol 1,000 Units 25 Mcg Tab) 5,000 units PO QAM [facility] Stop: 03/01/21 08:59 Last Admin: 01/31/21 08:41 Dose: 5,000 units Documented by: Zinc Sulfate (Zinc Sulfate 220 Mg Capsule) [facility] [place]: 03/01/21 09:11 Last Admin: 01/31/21 08:41 Dose: 220 mg Documented by: PG Care Time/CCT Total # of Minutes Spent Total Time Spent with Patient: Total time spent is greater than 50% in coordination of care (as documented) at patient's floor/unit and/or counseling patient: Coding Level of Care Code 28307 Subseq Hosp Care Lvl 2 Diagnoses Pneumonia due to 2019-nCoV U07.1; J12.82 Hypoxic R09.02 Gout M10.9 H/O hypercholesterolemia Z86.39 Hypothyroidism E03.9 GERD (gastroesophageal reflux disease) K21.9 Down syndrome Q90.9
[2021-01-31] MEDS: REMDESIVIR 100 MG in SODIUM CHLORIDE 0.9% 230 ML IV SCH (13:18)
[2021-01-31] MEDS: SODIUM CHLORIDE 0.9% 10ML FLUSH IV SCH (15:00)
[2021-02-01] MEDS: LEVOTHYROXINE SODIUM 175 MCG TABLET PO SCH (06:37)
[2021-02-01] MEDS: PIPERACILLIN/TAZOBACTAM 4.5 GM in DEXTROSE 5% 100 ML IV SCH ×3 (08:00→23:24)
--- NOTE | 2021-02-01 08:56 | XRay Report ---
SINGLE VIEW CHEST CLINICAL HISTORY: Hypoxia. Covid pneumonia. FINDINGS: An AP, portable, upright chest radiograph is compared to study dated 01/29/2021. The cardiom ediastinal silhouette is unremarkable. Multifocal airspace consolidation is again seen throughout bot h lungs. Trace pleural effusions are suspected. No pneumothorax is seen. The bony thorax is grossly i ntact. IMPRESSION: 1. Multifocal airspace consolidation is again seen throughout both lungs and consistent with the repo rted history of a viral pneumonia. 2. Suspect trace pleural effusions. ACT 112: Negative or not required by law. Electronically signed by: Jose Garcia M.D. 02/01/2021 8:55 AM
[2021-02-01 09:06] LABS: Basophils # (auto) 0.03 K/uL (0-0.2); Basophils % (auto) 0.6 %; Eosinophils # (auto) 0.01 K/uL (0-0.5); Eosinophils % (auto) 0.2 %; Hematocrit (blood only) 45.8 % (37-47); Hemoglobin 14.5 g/dL (12.0-16.0); Immature Granulocytes # (auto) 0.03 K/uL (0.00-0.02); Immature Granulocytes % (auto) 0.6 %; Lymphocytes # (auto) 0.97 K/uL (1.2-3.4); Lymphocytes % (auto) 18.2 %; Mean Corpuscular Hgb Conc 31.7 g/dL (32-36); Mean Corpuscular Volume 101.1 fL (80-100); Mean Platelet Volume 10.7 fL (7.4-10.4); Monocytes # (auto) 0.48 K/uL (0.11-0.59); Neutrophils # (auto) 3.81 K/uL (1.4-6.5); Neutrophils % (auto) 71.4 %; Platelet Count 262 K/uL (130-400); RDW Coefficient of Variation 16.8 % (11.5-14.5); Red Blood Count 4.53 M/uL (4.2-5.4); White Blood Count 5.33 K/uL (4.8-10.8)
[2021-02-01 09:36] LABS: BUN Creatinine Ratio 23.3 (10-20); C Reactive Protein 1.37 mg/dl (0-0.29); Calcium 8.7 mg/dl (8.5-10.1); Creatinine Clr Calc Pharmacy 84.4 ml/min; Est GFR (African American) 84.3; Est GFR (Non-African American) 72.7; Potassium 4.4 mmol/L (3.5-5.1)
[2021-02-01] MEDS: ZINC SULFATE 220 MG CAPSULE PO SCH (10:11)
[2021-02-01] MEDS: CHOLECALCIFEROL 1,000 UNITS 25 MCG TAB PO SCH (10:11)
[2021-02-01] MEDS: ATORVASTATIN 10 MG TAB PO SCH (10:11)
[2021-02-01] MEDS: PANTOprazole 40 MG TAB PO SCH (10:11)
[2021-02-01] MEDS: allopurinoL 100 MG TAB PO SCH ×2 (10:12→21:33)
[2021-02-01] MEDS: dexAMETHasone 6 MG in SYRINGE 0 ML IV SCH (10:12)
[2021-02-01] MEDS: AZITHROMYCIN 500 MG in DEXTROSE 5% 250 ML IV SCH (10:12)
[2021-02-01] MEDS: ENOXAPARIN INJ 60 MG/0.6 ML SYR SQ SCH ×2 (10:12→21:34)
[2021-02-01] MEDS: REMDESIVIR 100 MG in SODIUM CHLORIDE 0.9% 230 ML IV SCH (12:33)
[2021-02-01] MEDS: SODIUM CHLORIDE 0.9% 10ML FLUSH IV SCH (14:10)
[2021-02-01] MEDS ORDERED: diphenhydrAMINE Capsule 25 MG CAP PO PRN (17:50)
[2021-02-01] MEDS ORDERED: CETIRIZINE HCL 10 MG TABLET PO STA (18:01)
--- NOTE | 2021-02-01 23:51 | Hospitalist Progress Note ---
Date of Service February 01, 2021 Assessment & Plan (1) Pneumonia due to 2019-nCoV: Multifocal pneumonia due to COVID-19 virus with hypoxia- Dexamethasone 6 mg IV daily, day 3 Remdesivir IV per protocol, complete 5 days, day 3 today Zosyn 4.5 g IV every 8 hours, only complete 5 days Azithromycin 500 mg IV daily, 5 days stable on 5L today, no distress encouraged her and her mother to have her use CPAP HS discussed possible use of Tocilizumab with Dr. Morrow on 01/30, but her CRP was only 5.7 today the CRP is down to 1 so inflammation trending down updated her mother at the bedside (2) Hypoxic: acute hypoxic respiratory failure much improved, stable at 5L NC, able to take a deep breath try to titrate down to room air as tolerated (3) Gout: Continue allopurinol (4) H/O hypercholesterolemia: Continue atorvastatin (5) Hypothyroidism: Continue levothyroxine (6) GERD (gastroesophageal reflux disease): Continue Nexium/pantoprazole (7) Down syndrome: Mother will stay with patient while admitted Admission and Anticipated Discharge Date Admission Date: January 30, 2021 Subjective patient doing well today, over night she was titrated up to 10L wall high flow she refused to wear CPAP now that she is awake and more alert and sitting more upright, she is down to 5L, no distress discussed with her and her mother the need for CPAP at night she was supposed to get sleep study with [facility] but COVID has caused numerous delays eating better, her taste is back no fever/chills, mild dyspnea, has a cough labs today show that CRP trending down further to 1, WBC 5k, Hb 14, Cr 1.0, electrolytes stable Review of Systems Review of Systems: All systems reviewed & are unremarkable except as noted in Subjective Physical Exam Constitutional: well developed, well nourished, + ill appearing and + obese; no acute distress Neck: trachea midline, no thyromegaly + thick neck Respiratory: normal respiratory effort and + cough; no respiratory distress, no labored breathing and does not use accessory muscles Auscultation: lungs c lear to auscultation bilaterally Cardiovascular: RRR, no murmur, no edema Gastrointestinal (Abdomen): normal bowel sounds, soft, nontender, no hepatosplenomegaly Musculoskeletal: no cyanosis or clubbing, extremities motor strength 5/5 Skin: no rashes, warm and dry Neurologic: patellar DTR's 2+ bilat, sensation intact and PERRL, EOMI, accommodation nl, no face palsy, no dysarthria Psychiatric: A+Ox3, euthymic affect Lymphatic: no cervical or axillary lymphadenopathy Results & Data Results & Data ([facility]) Vital Signs (Past 12 Hours) Vital Signs Temp Pulse Pulse Resp BP Pulse Ox 02/01/21 23:30 36.6 C 61 20 103/81 92 02/01/21 19:10 36.8 C 47 L 22 144/80 H 90 02/01/21 16:15 36.6 C 65 17 110/71 95 02/01/21 12:48 92 02/01/21 12:10 48 L 02/01/21 11:54 36.7 C 60 20 107/74 93 Laboratory Results Laboratory Results - last 24 hr 02/01/21 02/01/21 08:39 08:39 WBC 5.33 RBC 4.53 Hgb 14.5 Hct 45.8 MCV 101.1 H MCH 32.0 MCHC 31.7 L RDW Std Deviation 63.0 H RDW Coeff of Sobeida 16.8 H Plt Count 262 MPV 10.7 H Immature Gran % (Auto) 0.6 Neut % (Auto) 71.4 Lymph % (Auto) 18.2 [place] % (Auto) 9.0 Eos % (Auto) 0.2 Baso % (Auto) 0.6 Neut # (Auto) 3.81 Lymph # (Auto) 0.[address] [place] # (Auto) 0.48 Eos # (Auto) 0.01 Baso # (Auto) 0.03 Immature Gran # (Auto) 0.03 H Sodium 139 Potassium 4.4 Chloride 106 Carbon Dioxide 29 Anion Gap 4.0 BUN 24 H Creatinine 1.02 Est Cr Clr Drug Dosing 84.4 Est GFR ( Amer) 84.3 Est GFR (Non-Af Amer) 72.7 BUN/Creatinine Ratio 23.3 H Glucose 113 H Calcium 8.7 C-Reactive Protein 1.37 H Medications Administered Current Inpatient Medications Acetaminophen (Acetaminophen 325 Mg Tab) 650 mg PO Q4H PRN PRN Reason: Pain or Fever Stop: 03/01/21 09:11 Last Admin: 01/31/21 11:02 Dose: 650 mg Documented by: Albuterol (Albuterol Hfa 8 Gm Inhaler) 2 puffs INH Q4 PRN PRN Reason: Wheezing Stop: 02/06/21 09:56 Allopurinol (Allopurinol 100 Mg Tab) 100 mg PO BID COUNTS INCLUDE 234 BEDS AT THE [facility] Stop: 03/01/21 08:59 Last Admin: 02/01/21 21:33 Dose: 100 mg Documented by: Atorvastatin Calcium (Atorvastatin 10 Mg Tab) 10 mg PO DAILY ANA Stop: 03/01/21 08:59 Last Admin: 02/01/21 10:11 Dose: 10 mg Documented by: Diphenhydramine HCl (Diphenhydramine Capsule 25 Mg Cap) 25 mg PO Q6 PRN PRN Reason: Itching Stop: 03/03/21 17:49 Enoxaparin Sodium (Enoxaparin Inj 60 Mg/0.6 Ml Syr) 60 mg SQ BID COUNTS INCLUDE 234 BEDS AT THE [facility] Stop: 03/01/21 09:59 Last Admin: 02/01/21 21:34 Dose: 60 mg Documented by: Dexamethasone 6 mg/ Syringe 1.5 mls @ 1 mls/min IV Q24H COUNTS INCLUDE 234 BEDS AT THE [facility] Stop: 03/01/21 09:59 Last Admin: 02/01/21 10:12 Dose: 1 mls/min Documented by: Piperacillin Sod/Tazobactam (Sod 4.5 gm/ Dextrose) 120 mls @ 30 mls/hr IV Q8H COUNTS INCLUDE 234 BEDS AT THE [facility]; Protocol Stop: 02/06/21 14:59 Last Admin: 02/01/21 23:24 Dose: 30 mls/hr Documented by: Azithromycin 500 mg/ Dextrose 255 mls @ 125 mls/hr IV Q24H COUNTS INCLUDE 234 BEDS AT THE [facility] Stop: 02/06/21 09:59 Last Infusion: 02/01/21 12:26 Dose: Infused Documented by: Remdesivir 100 mg/ Sodium (Chloride) 250 mls @ 250 mls/hr IV Q24H COUNTS INCLUDE 234 BEDS AT THE [facility]; Protocol Stop: 02/03/21 12:59 Last Infusion: 02/01/21 13:33 Dose: Infused Documented by: Levothyroxine Sodium (Levothyroxine Sodium 175 Mcg Tablet) 175 mcg PO DAILYBB COUNTS INCLUDE 234 BEDS AT THE [facility] Stop: 03/01/21 06:29 Last Admin: 02/01/21 06:37 Dose: 175 mcg Documented by: Miscellaneous Information (Piperacill/Tazobac Consult Active) 1 ea N/A UD PRN PRN Reason: Consult Stop: 03/01/21 09:11 Ondansetron HCl (Ondansetron Inj 2 Mg/Ml 2 Ml Vial) 4 mg IV Q6H PRN PRN Reason: Nausea Stop: 03/01/21 09:11 Pantoprazole Sodium (Pantoprazole 40 Mg Tab) 40 mg PO DAILY COUNTS INCLUDE 234 BEDS AT THE [facility] Stop: 03/01/21 08:59 Last Admin: 02/01/21 10:11 Dose: 40 mg Documented by: Sodium Chloride (Sodium Chloride 0.9% 10ml Flush) 30 ml IV Q24H COUNTS INCLUDE 234 BEDS AT THE [facility] Stop: 02/03/21 13:01 Last Admin: 02/01/21 14:10 Dose: 30 ml Documented by: Vitamin D (Cholecalciferol 1,000 Units 25 Mcg Tab) 5,000 units PO QAM COUNTS INCLUDE 234 BEDS AT THE [facility] Stop: 03/01/21 08:59 Last Admin: 02/01/21 10:11 Dose: 5,000 units Documented by: Zinc Sulfate (Zinc Sulfate 220 Mg Capsule) 220 mg PO QAM COUNTS INCLUDE 234 BEDS AT THE [facility] Stop: 03/01/21 09:11 Last Admin: 02/01/21 10:11 Dose: 220 mg Documented by: PG Care Time/CCT Total # of Minutes Spent Total Time Spent with Patient: Total time spent is greater than 50% in coordination of care (as documented) at patient's floor/unit and/or counseling patient: Coding Level of Care Code 37009 Subseq Hosp Care Lvl 2 Diagnoses Pneumonia due to 2019-nCoV U07.1; J12.82 Hypoxic R09.02 Gout M10.9 H/O hypercholesterolemia Z86.39 Hypothyroidism E03.9 GERD (gastroesophageal reflux disease) K21.9 Down syndrome Q90.9
[2021-02-02] MEDS: LEVOTHYROXINE SODIUM 175 MCG TABLET PO SCH (06:32)
[2021-02-02] MEDS: PIPERACILLIN/TAZOBACTAM 4.5 GM in DEXTROSE 5% 100 ML IV SCH ×3 (08:39→22:47)
[2021-02-02] MEDS: PANTOprazole 40 MG TAB PO SCH (08:40)
[2021-02-02] MEDS: ENOXAPARIN INJ 60 MG/0.6 ML SYR SQ SCH ×2 (08:40→21:00)
[2021-02-02] MEDS: ATORVASTATIN 10 MG TAB PO SCH (08:41)
[2021-02-02] MEDS: ZINC SULFATE 220 MG CAPSULE PO SCH (08:41)
[2021-02-02] MEDS: CHOLECALCIFEROL 1,000 UNITS 25 MCG TAB PO SCH (08:41)
[2021-02-02] MEDS: AZITHROMYCIN 500 MG in DEXTROSE 5% 250 ML IV SCH (10:51)
[2021-02-02] MEDS: allopurinoL 100 MG TAB PO SCH ×2 (10:52→21:00)
[2021-02-02] MEDS: dexAMETHasone 6 MG in SYRINGE 0 ML IV SCH (11:37)
[2021-02-02] MEDS: ACETAMINOPHEN 325 MG TAB PO PRN (11:38)
[2021-02-02] MEDS: REMDESIVIR 100 MG in SODIUM CHLORIDE 0.9% 230 ML IV SCH (11:41)
[2021-02-02] MEDS: SODIUM CHLORIDE 0.9% 10ML FLUSH IV SCH (12:55)
--- NOTE | 2021-02-02 15:15 | Hospitalist Progress Note ---
Date of Service February 02, 2021 Assessment & Plan (1) Pneumonia due to 2019-nCoV: Multifocal pneumonia due to COVID-19 virus with hypoxia- Dexamethasone 6 mg IV daily, day 4 Remdesivir IV per protocol, complete 5 days, day 4 today Zosyn 4.5 g IV every 8 hours, only complete 5 days Azithromycin 500 mg IV daily, 5 days remains stable on 5L today, no distress encouraged her and her mother to have her use CPAP HS, she refused last night discussed possible use of Tocilizumab with Dr. Morrow on 01/30, but her CRP was only 5.7 CRP went down to 1 so inflammation trending down updated her mother at the bedside (2) Hypoxic: acute hypoxic respiratory failure much improved, stable at 5L NC, able to take a deep breath try to titrate down to room air as tolerated (3) Gout: Continue allopurinol (4) H/O hypercholesterolemia: Continue atorvastatin (5) Hypothyroidism: Continue levothyroxine (6) GERD (gastroesophageal reflux disease): Continue Nexium/pantoprazole (7) Down syndrome: Mother will stay with patient while admitted Admission and Anticipated Discharge Date Admission Date: January 30, 2021 Subjective patient sleeping a lot today, not very motivated to get OOB told her and her mom and the RN to get her up for dinner to the chair no respiratory distress at all, no accessory muscles, stable on 5L eating quite well, moved bowels yesterday, making urine refused to wear CPAP last night has a red rash on her cheeks, her mom said it started prior to admission Review of Systems Review of Systems: All systems reviewed & are unremarkable except as noted in Subjective Physical Exam 2 Constitutional: well developed, well nourished and + obese; no acute distress Neck: trachea midline, no thyromegaly + thick neck Respiratory: normal respiratory effort and + cough; no respiratory distress, no labored breathing and does not use accessory muscles Auscultation: lungs clear to auscultation bilaterally Cardiovascular: RRR, no murmur, no edema Gastrointestinal (Abdomen): normal bowel sounds, soft, nontender, no hepatosplenomegaly Musculoskeletal: no cyanosis or clubbing, extremities motor strength 5/5 Skin: no rashes, warm and dry Neurologic: patellar DTR's 2+ bilat, sensation intact and PERRL, EOMI, accommodation nl, no face palsy, no dysarthria Psychiatric: A+Ox3, euthymic affect Lymphatic: no cervical or axillary lymphadenopathy Results & Data Results & Data ([facility]) Vital Signs (Past 12 Hours) Vital Signs Temp Pulse Resp BP Pulse Ox 02/02/21 08:00 36.8 C 56 L 18 106/68 90 02/02/21 04:17 36.5 C 45 L 24 104/71 96 Medications Administered Current Inpatient Medications Acetaminophen (Acetaminophen 325 Mg Tab) 650 mg PO Q4H PRN PRN Reason: Pain or Fever Stop: 03/01/21 09:11 Last Admin: 02/02/21 11:38 Dose: 650 mg Documented by: Albuterol (Albuterol Hfa 8 Gm Inhaler) 2 puffs INH Q4 PRN PRN Reason: Wheezing Stop: 02/06/21 09:56 Allopurinol (Allopurinol 100 Mg Tab) 100 mg PO BID [facility] Stop: 03/01/21 08:59 Last Admin: 02/02/21 10:52 Dose: 100 mg Documented by: Atorvastatin Calcium (Atorvastatin 10 Mg Tab) 10 mg PO DAILY [facility] Stop: 03/01/21 08:59 Last Admin: 02/02/21 08:41 Dose: 10 mg Documented by: Diphenhydramine HCl (Diphenhydramine Capsule 25 Mg Cap) 25 mg PO Q6 PRN PRN Reason: Itching Stop: 03/03/21 17:49 Enoxaparin Sodium (Enoxaparin Inj 60 Mg/0.6 Ml Syr) 60 mg SQ BID [facility] Stop: 03/01/21 09:59 Last Admin: 02/02/21 08:40 Dose: 60 mg Documented by: Dexamethasone 6 mg/ Syringe 1.5 mls @ 1 mls/min IV Q24H [facility] Stop: 03/01/21 09:59 Last Admin: 02/02/21 11:37 Dose: 1 mls/min Documented by: Piperacillin Sod/Tazobactam (Sod 4.5 gm/ Dextrose) 120 mls @ 30 mls/hr IV Q8H [facility]; Protocol Stop: 02/04/21 02:59 Last Infusion: 02/02/21 12:40 Dose: Infused Documented by: Azithromycin 500 mg/ Dextrose 255 mls @ 125 mls/hr IV Q24H [facility] Stop: 02/03/21 12:03 Last Infusion: 02/02/21 13:00 Dose: Infused Documented by: Remdesivir 100 mg/ Sodium (Chloride) 250 mls @ 250 mls/hr IV Q24H [facility]; Protocol Stop: 02/03/21 12:59 Last Infusion: 02/02/21 13:05 Dose: Infused Documented by: Levothyroxine Sodium (Levothyroxine Sodium 175 Mcg Tablet) 175 mcg PO DAILYBB [facility] Stop: 03/01/21 06:29 Last Admin: 02/02/21 06:32 Dose: 175 mcg Documented by: Miscellaneous Information (Piperacill/Tazobac Consult Active) 1 ea N/A UD PRN PRN Reason: Consult Stop: 02/04/21 02:59 Ondansetron HCl (Ondansetron Inj 2 Mg/Ml 2 Ml Vial) 4 mg IV Q6H PRN PRN Reason: Nausea Stop: 03/01/21 09:11 Pantoprazole Sodium (Pantoprazole 40 Mg Tab) 40 mg PO DAILY [facility] Stop: 03/01/21 08:59 Last Admin: 02/02/21 08:40 Dose: 40 mg Documented by: Sodium Chloride (Sodium Chloride 0.9% 10ml Flush) 30 ml IV Q24H [facility] Stop: 02/03/21 13:01 Last Admin: 02/02/21 12:55 Dose: 30 ml Documented by: Vitamin D (Cholecalciferol 1,000 Units 25 Mcg Tab) 5,000 units PO QAM [facility] Stop: 03/01/21 08:59 Last Admin: 02/02/21 08:41 Dose: 5,000 units Documented by: Zinc Sulfate (Zinc Sulfate 220 Mg Capsule) [facility] [place]: 03/01/21 09:11 Last Admin: 02/02/21 08:41 Dose: 220 mg Documented by: PG Care Time/CCT Total # of Minutes Spent Total Time Spent with Patient: Total time spent is greater than 50% in coordination of care (as documented) at patient's floor/unit and/or counseling patient: Coding Level of Care Code 91919 Subseq Hosp Care Lvl 2 Diagnoses Pneumonia due to 2019-nCoV U07.1; J12.82 Hypoxic R09.02 Gout M10.9 H/O hypercholesterolemia Z86.39 Hypothyroidism E03.9 GERD (gastroesophageal reflux disease) K21.9 Down syndrome Q90.9
[2021-02-02] MEDS ORDERED: ACETAMINOPHEN SUSP 325 MG/10.15 ML UDC PO PRN (22:46)
[2021-02-02] MEDS ORDERED: diphenhydrAMINE HCL 25 MG/10 ML UDC PO PRN (22:46)
[2021-02-03] MEDS ORDERED: CETIRIZINE HCL 10 MG TABLET PO PRN (03:50)
[2021-02-03] MEDS: LEVOTHYROXINE SODIUM 175 MCG TABLET PO SCH (05:48)
[2021-02-03] MEDS: PIPERACILLIN/TAZOBACTAM 4.5 GM in DEXTROSE 5% 100 ML IV SCH ×3 (05:49→21:50)
[2021-02-03] MEDS: ATORVASTATIN 10 MG TAB PO SCH (08:55)
[2021-02-03] MEDS: CHOLECALCIFEROL 1,000 UNITS 25 MCG TAB PO SCH (08:55)
[2021-02-03] MEDS: allopurinoL 100 MG TAB PO SCH ×2 (08:55→21:49)
[2021-02-03] MEDS: dexAMETHasone 6 MG in SYRINGE 0 ML IV SCH (08:55)
[2021-02-03] MEDS: PANTOprazole 40 MG TAB PO SCH (08:55)
[2021-02-03] MEDS: ZINC SULFATE 220 MG CAPSULE PO SCH (08:55)
[2021-02-03] MEDS: ENOXAPARIN INJ 60 MG/0.6 ML SYR SQ SCH ×2 (08:56→21:49)
[2021-02-03] MEDS: AZITHROMYCIN 500 MG in DEXTROSE 5% 250 ML IV SCH (09:06)
[2021-02-03] MEDS: REMDESIVIR 100 MG in SODIUM CHLORIDE 0.9% 230 ML IV SCH (11:10)
[2021-02-03] MEDS: SODIUM CHLORIDE 0.9% 10ML FLUSH IV SCH (12:19)
--- NOTE | 2021-02-03 21:43 | Hospitalist Progress Note ---
Date of Service February 03, 2021 Assessment & Plan (1) Pneumonia due to 2019-nCoV: Multifocal pneumonia due to COVID-19 virus with hypoxia- Dexamethasone 6 mg IV daily, day 5 Remdesivir IV per protocol, complete 5 days, day 5 today Zosyn 4.5 g IV every 8 hours, only complete 5 days Azithromycin 500 mg IV daily, 5 days down to 4L today, no distress starting to require less oxygen which is a good sign anticipate her being here a few more days to get down to room air (2) Hypoxic: acute hypoxic respiratory failure much improved, stable at 4L NC, able to take a deep breath try to titrate down to room air as tolerated (3) Gout: Continue allopurinol (4) H/O hypercholesterolemia: Continue atorvastatin (5) Hypothyroidism: Continue levothyroxine (6) GERD (gastroesophageal reflux disease): Continue Nexium/pantoprazole (7) Down syndrome: Mother will stay with patient while admitted Admission and Anticipated Discharge Date Admission Date: January 30, 2021 Subjective patient doing much better today, sitting up in a chair, watching movies eating well, no fever/chills, no chest pain, no diarrhea down to 4L NC today, saturations > 90% updated her mom at the bedside, discussed that she will be here a few more days Review of Systems Review of Systems: All systems reviewed & are unremarkable except as noted in Subjective Physical Exam Constitutional: well developed, well nourished and + obese; no acute distress Neck: trachea midline, no thyromegaly + thick neck Respiratory: normal respiratory effort; no respiratory distress, no labored breathing and does not use accessory muscles Auscultation: lungs clear to auscultation bilaterally Cardiovascular: RRR, no murmur, no edema Gastrointestinal (Abdomen): normal bowel sounds, soft, nontender, no hepatosplenomegaly Musculoskeletal: no cyanosis or clubbing, extremities motor strength 5/5 Skin: no rashes, warm and dry Neurologic: patellar DTR's 2+ bilat, sensation intact and PERRL, EOMI, accommodation nl, no face palsy, no dysarthria Psychiatric: A+Ox3, euthymic affect Lymphatic: no cervical or axillary lymphadenopathy Results & Data Results & Data ([facility]) Vital Signs (Past 12 Hours) Vital Signs Temp Pulse Pulse Resp BP Pulse Ox 02/03/21 20:07 44 L 02/03/21 19:33 36.6 C 45 L 18 106/74 97 02/03/21 17:43 40 L 02/03/21 15:32 36.8 C 55 L 19 125/80 90 02/03/21 11:15 37.1 C 66 18 117/78 91 Medications Administered Current Inpatient Medications Acetaminophen (Acetaminophen 325 Mg Tab) 650 mg PO Q4H PRN PRN Reason: Pain or Fever Stop: 03/01/21 09:11 Last Admin: 02/02/21 11:38 Dose: 650 mg Documented by: Acetaminophen (Acetaminophen Susp 325 Mg/10.15 Ml Udc) 650 mg PO Q6H PRN PRN Reason: Pain or Fever Stop: 03/04/21 22:45 Albuterol (Albuterol Hfa 8 Gm Inhaler) 2 puffs INH Q4 PRN PRN Reason: Wheezing Stop: 02/06/21 09:56 Allopurinol (Allopurinol 100 Mg Tab) 100 mg PO BID ANA Stop: 03/01/21 08:59 Last Admin: 02/03/21 08:55 Dose: 100 mg Documented by: Atorvastatin Calcium (Atorvastatin 10 Mg Tab) 10 mg PO DAILY ANA Stop: 03/01/21 08:59 Last Admin: 02/03/21 08:55 Dose: 10 mg Documented by: Cetirizine HCl (Cetirizine Hcl 10 Mg Tablet) 10 mg PO QAM PRN PRN Reason: Allergy Symptoms Stop: 03/05/21 08:59 Diphenhydramine HCl (Diphenhydramine Capsule 25 Mg Cap) 25 mg PO Q6 PRN PRN Reason: Itching Stop: 03/03/21 17:49 Diphenhydramine HCl (Diphenhydramine Hcl 25 Mg/10 Ml Udc) 25 mg PO Q8H PRN PRN Reason: Itching Stop: 03/04/21 22:45 Enoxaparin Sodium (Enoxaparin Inj 60 Mg/0.6 Ml Syr) 60 mg SQ BID ANA Stop: 03/01/21 09:59 Last Admin: 02/03/21 08:56 Dose: 60 mg Documented by: Dexamethasone 6 mg/ Syringe 1.5 mls @ 1 mls/min IV Q24H ANA Stop: 03/01/21 09:59 Last Admin: 02/03/21 08:55 Dose: 1 mls/min Documented by: Piperacillin Sod/Tazobactam (Sod 4.5 gm/ Dextrose) 120 mls @ 30 mls/hr IV Q8H [facility]; Protocol Stop: 02/04/21 02:59 Last Infusion: 02/03/21 18:40 Dose: Infused Documented by: Levothyroxine Sodium (Levothyroxine Sodium 175 Mcg Tablet) 175 mcg PO DAILYBB [facility] Stop: 03/01/21 06:29 Last Admin: 02/03/21 05:48 Dose: 175 mcg Documented by: Miscellaneous Information (Piperacill/Tazobac Consult Active) 1 ea N/A UD PRN PRN Reason: Consult Stop: 02/04/21 02:59 Ondansetron HCl (Ondansetron Inj 2 Mg/Ml 2 Ml Vial) 4 mg IV Q6H PRN PRN Reason: Nausea Stop: 03/01/21 09:11 Pantoprazole Sodium (Pantoprazole 40 Mg Tab) 40 mg PO DAILY [facility] Stop: 03/01/21 08:59 Last Admin: 02/03/21 08:55 Dose: 40 mg Documented by: Vitamin D (Cholecalciferol 1,000 Units 25 Mcg Tab) 5,000 units PO QAM [facility] Stop: 03/01/21 08:59 Last Admin: 02/03/21 08:55 Dose: 5,000 units Documented by: Zinc Sulfate (Zinc Sulfate 220 Mg Capsule) 220 mg PO QAM [facility] Stop: 03/01/21 09:11 Last Admin: 02/03/21 08:55 Dose: 220 mg Documented by: PG Care Time/CCT Total # of Minutes Spent Total Time Spent with Patient: Total time spent is greater than 50% in coordination of care (as documented) at patient's floor/unit and/or counseling patient: Coding Level of Care Code 99300 Subseq Hosp Care Lvl 2 Diagnoses Pneumonia due to 2019-nCoV U07.1; J12.82 Hypoxic R09.02 Gout M10.9 H/O hypercholesterolemia Z86.39 Hypothyroidism E03.9 GERD (gastroesophageal reflux disease) K21.9 Down syndrome Q90.9
[2021-02-04] MEDS: LEVOTHYROXINE SODIUM 175 MCG TABLET PO SCH ×2 (06:17→06:18)
[2021-02-04] MEDS: CHOLECALCIFEROL 1,000 UNITS 25 MCG TAB PO SCH (08:03)
[2021-02-04] MEDS: ATORVASTATIN 10 MG TAB PO SCH (08:03)
[2021-02-04] MEDS: ENOXAPARIN INJ 60 MG/0.6 ML SYR SQ SCH ×2 (08:03→21:04)
[2021-02-04] MEDS: PANTOprazole 40 MG TAB PO SCH (08:03)
[2021-02-04] MEDS: dexAMETHasone 6 MG in SYRINGE 0 ML IV SCH (08:03)
[2021-02-04] MEDS: allopurinoL 100 MG TAB PO SCH ×2 (08:03→21:04)
[2021-02-04] MEDS: ZINC SULFATE 220 MG CAPSULE PO SCH (08:04)
--- NOTE | 2021-02-04 12:03 | Hospitalist Progress Note ---
Date of Service February 04, 2021 Assessment & Plan (1) Pneumonia due to 2019-nCoV: Multifocal pneumonia due to COVID-19 virus with hypoxia- Dexamethasone 6 mg IV daily, day 6 Remdesivir IV per protocol, completed 5 days on 02/03 completed 5 days of Zosyn/Zithromax on 02/03 down to 3L today, no distress starting to require less oxygen which is a good sign anticipate her being ready for discharge by /Fri this week, could get 2 step prior to discharge (2) Hypoxic: acute hypoxic respiratory failure much improved, stable at 3L NC, able to take a deep breath try to titrate down to room air as tolerated (3) Gout: Continue allopurinol (4) H/O hypercholesterolemia: Continue atorvastatin (5) Hypothyroidism: Continue levothyroxine (6) GERD (gastroesophageal reflux disease): Continue Nexium/pantoprazole (7) Down syndrome: Mother will stay with patient while admitted Admission and Anticipated Discharge Date Admission Date: January 30, 2021 Subjective patient doing well, says she feels a little better, less short of breath, more energy eating better, getting OOB to chair, no fever/chills moved to medical floor today no labs today will ask infection control tomorrow about coming out of isolation d/w her mom at the bedside, hopeful for discharge in next 2-3 days if we can wean off oxygen could get two step Fri if not off oxygen by then Review of Systems Review of Systems: All systems reviewed & are unremarkable except as noted in Subjective Physical Exam Constitutional: well developed, well nourished and + obese; no acute distress Neck: trachea midline, no thyromegaly + thick neck Respiratory: normal respiratory effort; no respiratory distress, no labored breathing and does not use accessory muscles Auscultation: lungs clear to auscultation bilaterally Cardiovascular: RRR, no murmur, no edema Gastrointestinal (Abdomen): normal bowel sounds, soft, nontender, no hepatosplenomegaly Musculoskeletal: no cyanosis or clubbing, extremities motor strength 5/5 Skin: no rashes, warm and dry Neurologic: patellar DTR's 2+ bilat, sensation intact and PERRL, EOMI, accommodation nl, no face palsy, no dysarthria Psychiatric: A+Ox3, euthymic affect Lymphatic: no cervical or axillary lymphadenopathy Results & Data Results & Data ([facility]) Vital Signs (Past 12 Hours) Vital Signs Temp Pulse Pulse Resp BP Pulse Ox 02/04/21 11:55 36.5 C 47 L 19 122/86 98 02/04/21 10:49 88 L 02/04/21 08:57 97 02/04/21 08:00 99 02/04/21 07:32 36.8 C 65 19 110/76 96 02/04/21 07:11 40 L 02/04/21 04:19 36.6 C 47 L 20 128/78 91 02/04/21 00:15 44 L Medications Administered Current Inpatient Medications Acetaminophen (Acetaminophen 325 Mg Tab) 650 mg PO Q4H PRN PRN Reason: Pain or Fever Stop: 03/01/21 09:11 Last Admin: 02/02/21 11:38 Dose: 650 mg Documented by: Acetaminophen (Acetaminophen Susp 325 Mg/10.15 Ml Udc) 650 mg PO Q6H PRN PRN Reason: Pain or Fever Stop: 03/04/21 22:45 Albuterol (Albuterol Hfa 8 Gm Inhaler) 2 puffs INH Q4 PRN PRN Reason: Wheezing Stop: 02/06/21 09:56 Allopurinol (Allopurinol 100 Mg Tab) 100 mg PO BID [facility] Stop: 03/01/21 08:59 Last Admin: 02/04/21 08:03 Dose: 100 mg Documented by: Atorvastatin Calcium (Atorvastatin 10 Mg Tab) 10 mg PO DAILY [facility] Stop: 03/01/21 08:59 Last Admin: 02/04/21 08:03 Dose: 10 mg Documented by: Cetirizine HCl (Cetirizine Hcl 10 Mg Tablet) 10 mg PO QAM PRN PRN Reason: Allergy Symptoms Stop: 03/05/21 08:59 Diphenhydramine HCl (Diphenhydramine Capsule 25 Mg Cap) 25 mg PO Q6 PRN PRN Reason: Itching Stop: 03/03/21 17:49 Diphenhydramine HCl (Diphenhydramine Hcl 25 Mg/10 Ml Udc) 25 mg PO Q8H PRN PRN Reason: Itching Stop: 03/04/21 22:45 Enoxaparin Sodium (Enoxaparin Inj 60 Mg/0.6 Ml Syr) 60 mg SQ BID [facility] Stop: 03/01/21 09:59 Last Admin: 02/04/21 08:03 Dose: 60 mg Documented by: Dexamethasone 6 mg/ Syringe 1.5 mls @ 1 mls/min IV Q24H [facility] Stop: 03/01/21 09:59 Last Admin: 02/04/21 08:03 Dose: 1 mls/min Documented by: Levothyroxine Sodium (Levothyroxine Sodium 175 Mcg Tablet) 175 mcg PO DAILYBB [facility] Stop: 03/01/21 06:29 Last Admin: 02/04/21 06:18 Dose: 175 mcg Documented by: Ondansetron HCl (Ondansetron Inj 2 Mg/Ml 2 Ml Vial) 4 mg IV Q6H PRN PRN Reason: Nausea Stop: 03/01/21 09:11 Pantoprazole Sodium (Pantoprazole 40 Mg Tab) 40 mg PO DAILY [facility] Stop: 03/01/21 08:59 Last Admin: 02/04/21 08:03 Dose: 40 mg Documented by: Vitamin D (Cholecalciferol 1,000 Units 25 Mcg Tab) [facility] Stop: 03/01/21 08:59 Last Admin: 02/04/21 08:03 Dose: 5,000 units Documented by: Zinc Sulfate (Zinc Sulfate 220 Mg Capsule) 220 mg PO QAM [facility] Stop: 03/01/21 09:11 Last Admin: 02/04/21 08:04 Dose: 220 mg Documented by: PG Care Time/CCT Total # of Minutes Spent Total Time Spent with Patient: Total time spent is greater than 50% in coordination of care (as documented) at patient's floor/unit and/or counseling patient: Coding Level of Care Code 31159 Subseq Hosp Care Lvl 2 Diagnoses Pneumonia due to 2019-nCoV U07.1; J12.82 Hypoxic R09.02 Gout M10.9 H/O hypercholesterolemia Z86.39 Hypothyroidism E03.9 GERD (gastroesophageal reflux disease) K21.9 Down syndrome Q90.9
[2021-02-05] MEDS: PANTOprazole 40 MG TAB PO SCH (08:29)
[2021-02-05] MEDS: ZINC SULFATE 220 MG CAPSULE PO SCH (08:29)
[2021-02-05] MEDS: ATORVASTATIN 10 MG TAB PO SCH (08:29)
[2021-02-05] MEDS: CHOLECALCIFEROL 1,000 UNITS 25 MCG TAB PO SCH (08:29)
[2021-02-05] MEDS: ENOXAPARIN INJ 60 MG/0.6 ML SYR SQ SCH (08:30)
[2021-02-05] MEDS: allopurinoL 100 MG TAB PO SCH (08:30)
--- NOTE | 2021-02-05 09:31 | Hospitalist Progress Note ---
Date of Service February 05, 2021 Assessment & Plan (1) Pneumonia due to 2019-nCoV: Multifocal pneumonia due to COVID-19 virus with hypoxia- Dexamethasone 6 mg IV daily, day 6 Remdesivir IV per protocol, completed 5 days on 02/03 completed 5 days of Zosyn/Zithromax on 02/03 down to 3L today, no distress starting to require less oxygen which is a good sign anticipate her being ready for discharge by /Wed this week, could get 2 step prior to discharge (2) Hypoxic: acute hypoxic respiratory failure much improved, stable at 3L NC, able to take a deep breath try to titrate down to room air as tolerated (3) Gout: Continue allopurinol (4) H/O hypercholesterolemia: Continue atorvastatin (5) Hypothyroidism: Continue levothyroxine (6) GERD (gastroesophageal reflux disease): Continue Nexium/pantoprazole (7) Down syndrome: Mother will stay with patient while admitted Admission and Anticipated Discharge Date Admission Date: January 30, 2021 Results & Data Results & Data ([facility]) Vital Signs (Past 12 Hours) Vital Signs Temp Pulse Resp BP Pulse Ox 02/05/21 08:43 36.4 C L 56 L 16 122/75 92 02/04/21 23:20 36.6 C 45 L 16 102/63 93 PG Care Time/CCT Total # of Minutes Spent Total Time Spent with Patient: Total time spent is greater than 50% in coordination of care (as documented) at patient's floor/unit and/or counseling patient: Coding Diagnoses Pneumonia due to 2019-nCoV U07.1; J12.82 Hypoxic R09.02 Gout M10.9 H/O hypercholesterolemia Z86.39 Hypothyroidism E03.9 GERD (gastroesophageal reflux disease) K21.9 Down syndrome Q90.9
[2021-02-05 10:27] LABS: Hematocrit (blood only) 42.9 % (37-47); Hemoglobin 14.5 g/dL (12.0-16.0); Mean Corpuscular Hemoglobin 33.2 pg (25-34); Mean Corpuscular Hgb Conc 33.8 g/dL (32-36); Mean Corpuscular Volume 98.2 fL (80-100); Mean Platelet Volume 10.9 fL (7.4-10.4); Platelet Count 316 K/uL (130-400); RDW Coefficient of Variation 15.9 % (11.5-14.5); RDW Standard Deviation 57.3 fL (36.4-46.3); Red Blood Count 4.37 M/uL (4.2-5.4); White Blood Count 6.82 K/uL (4.8-10.8)
[2021-02-05] MEDS: dexAMETHasone 6 MG in SYRINGE 0 ML IV SCH (10:30)
[2021-02-05 11:10] LABS: Albumin Globulin Ratio 0.6 (0.9-2); Albumin Level 2.8 gm/dl (3.4-5.0); BUN Creatinine Ratio 23.4 (10-20); Bilirubin,Total 0.5 mg/dl (0.2-1); C Reactive Protein 0.35 mg/dl (0-0.29); Creatinine Clr Calc Pharmacy 72.9 ml/min; Est GFR (African American) 72.9; Est GFR (Non-African American) 62.9; Globulin 4.5 gm/dl (2.5-4.0); Total Protein 7.3 gm/dl (6.4-8.2)
[2021-02-05 11:12] LABS: Folate (Folic Acid) 4.3 ng/ml (>5.38)
[2021-02-05] MEDS ORDERED: FOLIC ACID 400 MCG TAB PO SCH (12:00)
--- NOTE | 2021-02-05 12:45 | Discharge Summary ---
Date of Service February 05, 2021 Admission HPI Per Admitting Provider The patient is a 30-year-old female with a past medical history including Down's syndrome, hypercholesterolemia, gout, hypothyroidism, GERD and morbid obesity. She had a positive COVID-19 test at [facility] pharmacy 2 days ago, and retested positive in ED this evening. Chest x-ray was consistent with significant multifocal pneumonia, with pulse ox on room air recorded at 87% in the ED. Her mother who was in the room, was hospitalized recently for COVID-19 infection, having completed her treatment today. Admission Exam Per Admitting Provider The patient is awake, alert and oriented 3, normocephalic and atraumatic, lying in bed and in no acute distress. HEENT--PERRL, EOMI, mucous membranes and oropharynx dry. Neck--supple. No JVD. No bruits. Thyroid normal, trachea midline, no adenopathy. Heart--normal S1 and S2. No murmurs, rubs or gallops. Lungs--coarse breath sounds with wheezes bilaterally. No respiratory distress, no accessory muscle use. Abdomen--normal bowel sounds and soft. Nontender. Nondistended. Morbid obesity Extremities--no cyanosis or clubbing. No edema. Dermatologic--normal skin turgor, normal color, no abnormal lymph nodes, no rash. Neurologic--cranial nerves II through XII grossly intact. Rheumatologic--normal range of motion. Psychiatric--normal affect. Principal Diagnosis COVID-19 Pneumonia with Hypoxia Discharge Exam Constitutional well developed, well nourished and + obese; no acute distress fatigued Eyes + anicteric sclerae and PERRL ENMT mmm Neck trachea midline, no thyromegaly + thick neck Respiratory normal respiratory effort; no respiratory distress, no labored breathing, does not use accessory muscles, no cough and not tachypneic Auscultation: lungs clear to auscultation bilaterally, + diminished lung sounds and + crackles (faint posterior crackles) 91% on RA at rest Cardiovascular RRR, no murmur, no edema Gastrointestinal (Abdomen) normal bowel sounds, soft, nontender, no hepatosplenomegaly Musculoskeletal no cyanosis or clubbing, extremities motor strength 5/5 Skin no rashes, warm and dry Neurologic patellar DTR's 2+ bilat, sensation intact and PERRL, EOMI, accommodation nl, no face palsy, no dysarthria Psychiatric A+Ox3, euthymic affect Lymphatic no cervical or axillary lymphadenopathy Discharge Data Allergies Allergy/AdvReac Type Severity Reaction Status Date / Time No Known Allergies Allergy Verified 01/30/21 00:39 Consultations 01/29/21 23:41 ED Decision to Admit Stat Hospital Course (1) Pneumonia due to 2019-nCoV: Multifocal pneumonia due to COVID-19 virus with hypoxia- Was tested at a [facility] 2 days prior to admission and had been given a prescription for dexamethasone however unfortunately presented to the emergency department due to worsening shortness of breath and a pulse oximetry reading of 87% on room air Patient was initially on CPAP then transition to high flow and ultimately stable on 2 L nasal cannula She continued on dexamethasone 6 mg IV daily while inpatient for a total of 7 days and was discharged with an additional 3 days She completed a course of remdesivir IV per protocol, 5 days on 02/03 She also completed a course of azithromycin and Zosyn for antibiotics on 02/03 for a total of 5 days She had been weaned down to 2 to 3 L on day of discharge and was only having occasional shortness of breath with exertion. A 2 step was completed and the patient was stable on room air and required 2 L with ambulation with a drop in her pulse ox to 85% on room air with ambulation. Oxygen was arranged by case management at time of discharge and delivered to her house Patient's mother was a facility technician and has a pulse oximeter at home and was instructed to continue to monitor patient's SPO2. She also has an albuterol inhaler to use as needed at home. Patient and mother wished to leave the hospital today and felt more comfortable continuing her care at home in a more familiar environment (2) Hypoxic: acute hypoxic respiratory failure secondary to COVID pneumonia as above Stable on RA prior to discharge with 2 step indicating need for 2L with ambulation Instructed to continue ambulation to prevent clots given Covid infection with hypercoagulable state (3) Gout: Continued allopurinol (4) H/O hypercholesterolemia: Continued atorvastatin (5) Hypothyroidism: Continued levothyroxine (6) GERD (gastroesophageal reflux disease): Continued Nexium/pantoprazole (7) Down syndrome: Mother will stay with patient while admitted MCV >100 on prior CBC. Added B12/ folate --> folate LOW and started and sent on 400mg PO daily at discharge Also w hx Vit D deficiency and previously on 50,000 weekly -- checked prior to d/c and low normal and to continue daily supplementation at d/c with follow up already scheduled for March. Discharged home with mother. Supplemental O2 with ambulation. Three more days of dexamethasone. Total Time Total Time Spent Total Time Spent (In Minutes): 70 Discharge Plan Discharge Items Patient Disposition: Home - Self-Care Reason For Visit: covid-19 with secondary bacterial pnx w/ hypoxia Discharge Diagnosis: COVID-19 Condition on Discharge: Fair Goals: You have been hospitalized for an acute medical problem. During your stay at [facility], we have made an effort to correct the problem that brought you to the hospital while keeping you as comfortable as possible. Medications were used to bring your condition under control and your discharge instructions will include directions for any medications you should take after leaving the hospital. Please make sure you see your Primary Care Provider as part of your follow up plan. Activity: Resume your previous activity Non-emergency contact: Primary Care Provider Call non-emergency contact if: you have any medication questions, your symptoms worsen and your pain is worsening Follow-up/Referrals: Rashad Cole [Primary Care Provider] - 02/12/21 11:20 am ( ) Diet: Heart Healthy Addtl Attending Provider Instructions: You have been hospitalized for COVID-19 pneumonia. You completed a course of remdesivir while inpatient (antiviral) and completed a course of antibiotics as well. You were treated with methylprednisolone and have an additional 3 days of the 6mg tablets to complete 10 day course. A 2-step was done prior to discharge and you qualified for oxygen to use 2 liters via nasal cannula to wear with activity. You should continue to use pulse oximeter to ensure adequate oxygenation and call if these are <90%. You can also use your albuterol inhaler as needed for shortness of breath as previously discussed. Your folate was checked and found to be low and you were to have low folate which is important in making new red blood cells. You should continue this at discharge. You will need to have your sleep study done as an outpatient as previously scheduled. COVID-19 increases your chances of blood clots and you should continue to remain active and frequently ambulate to prevent these complications. Your vitamin D level was checked and was low normal. Not low enough for the 50,000IU weekly, but you should maintain on 5000 units daily. A prescription has been provided. Please follow up with your primary care provider in the next week to monitor your progress. Please return to the emergency department with any fever, increased shortness of breath, chest pain, or for any other symptoms that are concerning for you. It has been a pleasure being a part of the medical team providing for you while you have been in the hospital. Take care! Addtl Chisel Trimmer Provider Instructions: Coronavirus disease 2019 (COVID-19) is a virus that causes a respiratory illness. It is caused by a coronavirus called 2019 novel coronavirus (2019- nCoV). There are many types of coronavirus. Coronaviruses are a very common ca use of bronchitis. They may sometimes cause lung infection(pneumonia). Symptoms can range from mild to severe respiratory illness. These viruses are also foundin some animals. COVID-19 was first found in people in [facility], in late 2018. In 2020, several cases of COVID-19 have been confirmed in the [place] Public health officials are working to find the source. How the virus spreads is not yet fully known. It may be spread through droplets of fluid that a person coughs or sneezes into the air. It may be spread if you touch a surface with virus on it, such as a handle or object, and then touch your mouth. What are the symptoms of COVID-19? Some people have no symptoms or mild symptoms. Symptoms may appear 2 to 14 days after contact with the virus. Symptoms can include: Fever Coughing Trouble breathing What are possible complications from COVID-19? In many cases, this virus can cause infection (pneumonia) in both lungs. In some cases, this can cause . How is COVID-19 diagnosed? Your healthcare provider will ask about your symptoms. He or she will also ask about your recent travel and contact with sick people. Testing for the virus is only done through the CDC. If yourhealthcare provider thinks you may have COVID- 19, he or she will work with your local health department and the CDC on testing. Follow all instructions from your healthcare provider. COVID-19 is diagnosed by: Nasal and throat swab. A cotton-tipped swab is wiped inside your nose or throat. This is done to check for viruses in your nasal mucus. Sputum culture. A small sample of mucus coughed from your lungs (sputum) is collected if you have a cough. It is checked for the virus. How is COVID-19 treated? There is currently no medicine to treat the virus. Treatment is done to help your body while it fights the virus. This is known as supportive care. Supportive care may include: Pain medicine. These include acetaminophen and ibuprofen. They are used to help ease pain and reduce fever. Bed rest. This helps your body fight the illness. For severe illness, you may need to stay in the hospital. Care during severe illness may include: IV (intravenous) fluids.These are given through a vein to help keep your body hydrated. Oxygen. Supplemental oxygen or ventilation with a breathing machine (ventilator) may be given. This is done to keep enough oxygen in your body. Are you at risk for COVID-19? If youve been to a place where people have been sick with this virus, you are at risk for infection. You are at risk if you: Recently traveled to an affected area Had contact with a sick person who recently traveled to this area Had contact with a person who was diagnosed with COVID-19 How can COVID-19 be prevented? There is no vaccine yet. The best prevention is to not have contact with the virus. The CDC advises that people should not travel to areas where there are COVID-19 outbreaks right now for any reason that is not urgent. To help prevent spreading the infection, wash your hands often, or use an alcohol-basedhand continuous process machine operator. If you are in an area with COVID-19: Wash your hands often. Or use an alcohol-based hand continuous process machine operator often. Only touch your eyes, nose, or mouth with clean hands. Dont have contact with people who are sick. Follow local instructions about being in public. For example, you may be told to not use public transport for a period of time. Stay away from markets that have live or animals. Wash your hands after touching any animals. Don't touch animals that may be sick. Dont share eating or drinking tools with sick people. Dont kiss someone who is sick. Clean surfaces often with disinfectant. If you were in an area with COVID-19 in the last 14 days: Call your healthcare provider. He or she can talk with local health staff to see what action may be needed. Follow all instructions from your provider. Take your temperature every morning and evening for at least 14 days. This is to check for fever. Keep a record of the readings. Keep watch for symptoms of the virus. Tell your provider right away if you have symptoms. If you were in an area with COVID-19 and have a fever or other symptoms: Dont panic. Keep in mind that other illnesses can cause similar symptoms. Stay away from work, school, and public places. Limit physical contact with family members. Don't kiss anyone or share eating or drinking utensils. Clean surfaces you touch with disinfectant. This is to help prevent the virus from spreading. Call your healthcare provider. Explain that you have been exposed to COVID-19 and have symptoms. Do this before going to any hospital. Wait for instructions. Keep in mind that healthcare staff may wear protective equipment such as masks, gowns, gloves, and eye protection. You may be put in a separate room. This is to prevent the possible virus from spreading. Tell the healthcare staff about recent travel. This includes local travel on public transport. Staff may need to find other people you have been in contact with. Follow all instructions the healthcare staff give you. If you have been diagnosed with COVID-19 Follow all instructions from your healthcare provider. Dont leave your home, except to get medical care. Call your healthcare providers office before going. They can prepare and give you instructions. This will help prevent the virus from spreading. Dont go to work, school, or public areas. Dont use public transport or taxis. Stay away from other people in your home. Have them wear face masks around you. Dont share household items or food. Wear a face mask if you can. This includes at home or in a medical facility. Cover your face with a tissue when you cough or sneeze. Throw the tissue away. Wash your hands. Wash your hands often. Caregivers should: Follow all instructions from healthcare staff. Wear a face mask and protective clothing as advised. Wash hands often. Keep track of the sick persons symptoms. Clean surfaces, fabrics, and laundry thoroughly. Keep other people away from the sick person. When to call your healthcare provider Call your healthcare provider: If youve recently traveled and have symptoms If you have been diagnosed with COVID-19 and your symptoms are worse To learn more To find out more about COVID-19, visit the CDC website at www.cdc.gov/coronavirus/2019-ncov/index.html. [employer]. [address] [place] [address], [place] [address]. All rights reserved. This information is not intended as a substitute for professional medical care. Always follow your healthcare professional's instructions. This information has been adapted from [employer] Pending Studies at Discharge: No Stand-Alone Forms: My [facility] Medications and DC Order Prescriptions: New cetirizine 10 mg Tablet 10 mg PO QAM PRN (Reason: allergy symptoms) Qty: 30 RF: 0 folic acid 400 mcg Tablet 400 mcg PO QAM Qty: 30 RF: 0 albuterol sulfate [Ventolin HFA] 90 mcg/actuation Hfa Aerosol Inhaler 2 puff inhalation Q4 PRN (Reason: shortness of breath or wheezing) Qty: 6.7 RF: 0 cholecalciferol (vitamin D3) 25 mcg (1,000 unit) Capsule 5,000 unit PO QAM Qty: 30 RF: 0 Continued levothyroxine 175 mcg capsule 175 mcg PO DAILY RF: 0 allopurinol 100 mg tablet 100 mg PO BID RF: 0 atorvastatin 10 mg tablet 10 mg PO DAILY RF: 0 esomeprazole magnesium [Nexium Packet] [address] for susp in packet 40 mg PO DAILY RF: 0 hydrocortisone 2.5 % cream 1 applic topical DAILY Qty: 30 RF: 0 dexamethasone 4 mg tablet 6 mg PO DAILY Qty: 3 RF: 0 Discharge Orders: Discharge Order (Routine); Ordered 02/05/21 Ordered By: Radha Palomares/Other Patient Handouts: Caring for Someone Who Has COVID-19 Admission Data Admit Date/Time: 01/30/21 02:50 Attending Provider: Sachi Payne Admit Provider: Chidi Jc Primary Care Provider: Rashad Cole Other Providers: Chidi Jc Other Interventions: Discharge Summary Assessment (RN) Last Done: 02/05/21 14:09 Supervising Physician Co-Signing Physician Notes PA Supervision Note: I personally saw and examined the patient. I verified all thayer points and agree with NAA Wolfe with the following exceptions and/or additions: S-patient feeling well and denies any shortness of breath. She only requires 2 L nasal cannula of O2 with ambulation and this is to be delivered to the house when they get there. No other complaints. Is eating well, moving her bowels. O- Vitals reviewed Gen: Obese, NAD HEENT: Anicteric sclerae, EOMI CV: RRR no mgr nl S1S2 Pulm: CTAB no wcr Abd: +BS soft NT ND no masses or hernias Ext: No edema Skin: No rashes, warm/dry Neuro: Full strength throughout A/I-61-soha-old female with Down's syndrome and obesity, hypothyroidism, GERD, gout, here with COVID-19 pneumonia and acute respiratory failure with hypoxia Stable for discharge home to complete dexamethasone course and with supplemental O2 to be weaned off by PCP after discharge. Coding Level of Care Code D/C Day Management >30 mins Diagnoses Pneumonia due to 2019-nCoV U07.1; J12.82 Hypoxic R09.02 Gout M10.9 H/O hypercholesterolemia Z86.39 Hypothyroidism E03.9 GERD (gastroesophageal reflux disease) K21.9 Down syndrome Q90.9
== END 2021-02-05 17:23 | disposition home or self-care (01) | DRG 177 ==
LOC: ED 22:07 → SUATTDRO 01-30 02:50 → 2E 01-30 02:50 → 2S 01-30 06:16 → 3W 02-04 13:04